=== PATIENT | male | born 1955 | race Caucasian/White ===

== ENCOUNTER 2018-12-20 12:06 | Inpatient (IN) | payer OTHER ==
[~2018-12-20] VITALS: Ht 193 cm; Wt 108.0 kg
[2018-12-20] VITALS (15 sets, daily range): BP systolic 140–170; BP diastolic 60–104
[2018-12-20] MEDS ORDERED: NITROGLYCERIN SUBLINGUAL 0.4 MG BOTTLE OF 25. SL ONE (12:12)
[2018-12-20] MEDS ORDERED: HEPARIN for IV BOLUS 10,000 UNIT/10 ML VIAL. ONE ×2 (12:12→12:57)
[2018-12-20] MEDS ORDERED: fentaNYL PF VIAL 100 MCG/2 ML VIAL ONE ×2 (12:13→12:39)
[2018-12-20] MEDS ORDERED: MORPHINE SULFATE 10 MG/ML VIAL. ONE (12:14)
[2018-12-20] MEDS ORDERED: ONDANSETRON PF 4 MG/2 ML VIAL. IV ONE (12:15)
[2018-12-20] MEDS ORDERED: HYDROmorphone 2 MG/ML VIAL IV ONE (12:15)
[2018-12-20] MEDS ORDERED: HYDROmorphone 2 MG/ML VIAL ONE (12:20)
--- NOTE | 2018-12-20 12:22 | EKG ---
[facility] [address] [place] [address] Test Date: 2018-12-20 Test Time: 12:06:24 Pat Name: RADHA WHITE Department: Room: Gender: M Vocational Director: : [id number] Requested By: LOGAN ANGELES Order Number: [id number] Reading MD: Measurements Intervals Spring Rate: 56 P: 0 NV: 188 QRS: 10 QRSD: 94 T: 54 QT: 396 QTc: 384 Interpretive Statements SINUS RHYTHM QRS(T) CONTOUR ABNORMALITY CONSISTENT WITH INFERIOR INFARCT PROBABLY OLD ST-T ELEVATION, CONSIDER ACUTE ANTERIOR INFARCT ABNORMAL ECG RI6.01 Unconfirmed report No previous ECG available for comparison
[2018-12-20] MEDS ORDERED: IODIXANOL 320 MG/ML 100 ML VIAL. ONE (12:24)
[2018-12-20] MEDS ORDERED: LIDOCAINE 1% Multi-Dose 20 ML VIAL. ONE (12:24)
[2018-12-20 12:25] LABS: BASO % 0 % (0-3); EOS % 7 % (0-3); HEMATOCRIT 45.2 % (39.0-53.0); HEMOGLOBIN 15.9 g/dL (13.0-17.5); LYMPH # 2.4 x10^3/uL (1.0-4.8); LYMPH % 17 % (24-48); MEAN CORPUSCULAR HEMOGLOBIN 31 pg (25-35); MEAN CORPUSCULAR HGB CONC 35 g/dL (31-37); MEAN CORPUSCULAR VOLUME 89 fL (79-100); MONO # 1.1 x10^3/uL (0.0-1.1); MONO % 8 % (0-9); NEUT # 9.2 x10^3/uL (1.8-7.7); NEUT % 67 % (31-73); PLATELET COUNT 324 x10^3/uL (140-400); RED BLOOD COUNT 5.09 x10^6/uL (4.30-5.70); RED CELL DISTRIBUTION WIDTH 13.4 % (11.5-14.5); WHITE BLOOD COUNT 13.7 x10^3/uL (4.0-11.0)
[2018-12-20] MEDS ORDERED: FAMOTIDINE 20 MG/2 ML VIAL ONE (12:28)
[2018-12-20] MEDS ORDERED: diphenhydrAMINE 50 MG/ML VIAL ONE (12:28)
[2018-12-20] MEDS ORDERED: methylPREDNISolone SOD SUCC PF 125 MG/2 ML VIAL. ONE (12:28)
[2018-12-20 12:29] LABS: CREATININE ISTAT 1.2 mg/dL (0.5-1.4); HEMOGLOBIN ISTAT 15.6 g/dL (14-18); ION CA ISTAT 1.16 mmol/L (1.13-1.32); POTASSIUM ISTAT 3.4 mmol/L (3.5-5.0)
--- NOTE | 2018-12-20 12:29 | PDOC1 ---
History and Physical Date of Admission Date of Admission DATE: 12/20/18 TIME: 12:29 Identification/Chief Complaint Chief Complaint seen in er , CODE STEMI Patient is a 63 year old male who is him by EMS FROM [place], NOTED SEVERE ANGINAL PAIN AT 11 AM TODAY Past Medical History Cardiovascular: Hyperlipidemia Pulmonary: Bronchitis, COPD Family History Family History: Hypertension Family History: Parent Social History Smoke: 1 pack per day ALCOHOL: none Drugs: None Current Medications Current Medications Current Medications Nitroglycerin (Nitrostat) 0.4 mg STK-MED ONCE SL ; Start 12/20/18 at 12:12; Stop 12/20/18 at 12:12; Status DC Heparin Sodium (Porcine) (Heparin Sodium) 10,000 unit STK-MED ONCE .ROUTE ; Start 12/20/18 at 12:12; Stop 12/20/18 at 12:12; Status DC Fentanyl Citrate (Fentanyl 2ml Vial) 100 mcg STK-MED ONCE .ROUTE ; Start 12/20/18 at 12:13; Stop 12/20/18 at 12:13; Status DC Hydromorphone HCl (Dilaudid) 2 mg 1X ONCE IV Last administered on 12/20/18at 12:22; Start 12/20/18 at 12:15; Stop 12/20/18 at 12:20; Status DC Ondansetron HCl (Zofran) 4 mg 1X ONCE IV Last administered on 12/20/18at 12:23; Start 12/20/18 at 12:15; Stop 12/20/18 at 12:20; Status DC Morphine Sulfate (Morphine Sulfate) 10 mg STK-MED ONCE .ROUTE ; Start 12/20/18 at 12:14; Stop 12/20/18 at 12:14; Status DC Morphine Sulfate (Morphine Sulfate) 4 mg 1X ONCE IV Last administered on 12/20/18at 12:20; Start 12/20/18 at 12:30; Stop 12/20/18 at 12:31 Hydromorphone HCl (Dilaudid) 2 mg STK-MED ONCE .ROUTE ; Start 12/20/18 at 12:20; Stop 12/20/18 at 12:20; Status DC Iodixanol (Visipaque 320) 100 ml STK-MED ONCE .ROUTE ; Start 12/20/18 at 12:24; Stop 12/20/18 at 12:24; Status DC Lidocaine HCl (Lidocaine 1% 20ml Vial) 20 ml STK-MED ONCE .ROUTE ; Start 12/20/18 at 12:24; Stop 12/20/18 at 12:24; Status DC Heparin Sodium/ Sodium Chloride 1,000 ml @ As Directed STK-MED ONCE .ROUTE ; Start 12/20/18 at 12:24; Stop 12/20/18 at 12:24; Status DC Diphenhydramine HCl (Benadryl) 50 mg STK-MED ONCE .ROUTE ; Start 12/20/18 at 12:28; Stop 12/20/18 at 12:28; Status DC Famotidine (Pepcid Vial) 20 mg STK-MED ONCE .ROUTE ; Start 12/20/18 at 12:28; Stop 12/20/18 at 12:28; Status DC Allergies Allergies: Coded Allergies: Penicillins (Verified Allergy, Intermediate, 12/20/18) latex (Verified Allergy, Mild, 12/20/18) ROS Review of System Review of Systems Review of Systems Constitutional: Denies fever or chills [] Eyes: Denies change in visual acuity, redness, or eye pain [] HENT: Denies nasal congestion or sore throat [] Respiratory: Denies cough or shortness of breath [] Cardiovascular: No additional information not addressed in HPI [] GI: Denies abdominal pain, nausea, vomiting, bloody stools or diarrhea [] : Denies dysuria or hematuria [] Musculoskeletal: Denies back pain or joint pain [] Integument: Denies rash or skin lesions [] Neurologic: Denies headache, focal weakness or sensory changes [] Endocrine: Denies polyuria or polydipsia [] 14 PT systems were reviewed and found to be within normal limits, except as docu mented in this note. Physical Exam Physical Exam Physical Exam Physical Exam Constitutional: Well developed, well nourished, MOD acute distress, DIAPHORETIC. [] HENT: Normocephalic, atraumatic, bilateral external ears normal, oropharynx moist, no oral exudates, nose normal. [] Eyes: PERRLA, EOMI, conjunctiva normal, no discharge. [] Neck: Normal range of motion, no tenderness, supple, no stridor. [] Cardiovascular:Heart rate regular rhythm, no murmur [] Lungs & Thorax: Bilateral breath sounds clear to auscultation, DIMINISHED [] Abdomen: Bowel sounds normal, soft, no tenderness, no masses, no pulsatile masses. [] Skin: Warm, dry, no erythema, no rash. [] Back: No tenderness, no CVA tenderness. [] Extremities: No tenderness, no cyanosis, no clubbing, ROM intact, no edema. [] Neurologic: Alert and oriented X 3, normal motor function, normal sensory function, no focal deficits noted. [] Psychologic: Affect normal, judgement normal, mood normal. [] General: Alert, Oriented X3, Cooperative, moderate distress HEENT: Atraumatic, PERRLA, EOMI, Mucous membr. moist/pink Lungs: Clear to auscultation Heart: S1S2, RRR Abdomen: Normal bowel sounds, Soft Rectal Exam: not examined PELVIC: Examination not indicated Extremities: No cyanosis Skin: No breakdown Neuro: Normal speech, Cranial nerves 3-12 NL Psych/Mental Status: Mental status NL, Mood NL Labs Labs Laboratory Tests Test 12/20/18 12:10 White Blood Count 13.7 x10^3/uL (4.0-11.0) Red Blood Count 5.09 x10^6/uL (4.30-5.70) Hemoglobin 15.9 g/dL (13.0-17.5) Hematocrit 45.2 % (39.0-53.0) Mean Corpuscular Volume 89 fL (79-100) Mean Corpuscular Hemoglobin 31 pg (25-35) Mean Corpuscular Hemoglobin Concent 35 g/dL (31-37) Red Cell Distribution Width 13.4 % (11.5-14.5) Platelet Count 324 x10^3/uL (140-400) Neutrophils (%) (Auto) 67 % (31-73) Lymphocytes (%) (Auto) 17 % (24-48) Monocytes (%) (Auto) 8 % (0-9) Eosinophils (%) (Auto) 7 % (0-3) Basophils (%) (Auto) 0 % (0-3) Neutrophils # (Auto) 9.2 x10^3/uL (1.8-7.7) Lymphocytes # (Auto) 2.4 x10^3/uL (1.0-4.8) Monocytes # (Auto) 1.1 x10^3/uL (0.0-1.1) Eosinophils # (Auto) 1.0 x10^3/uL (0.0-0.7) Basophils # (Auto) 0.0 x10^3/uL (0.0-0.2) Laboratory Tests Test 12/20/18 12:10 White Blood Count 13.7 x10^3/uL (4.0-11.0) Red Blood Count 5.09 x10^6/uL (4.30-5.70) Hemoglobin 15.9 g/dL (13.0-17.5) Hematocrit 45.2 % (39.0-53.0) Mean Corpuscular Volume 89 fL (79-100) Mean Corpuscular Hemoglobin 31 pg (25-35) Mean Corpuscular Hemoglobin Concent 35 g/dL (31-37) Red Cell Distribution Width 13.4 % (11.5-14.5) Platelet Count 324 x10^3/uL (140-400) Neutrophils (%) (Auto) 67 % (31-73) Lymphocytes (%) (Auto) 17 % (24-48) Monocytes (%) (Auto) 8 % (0-9) Eosinophils (%) (Auto) 7 % (0-3) Basophils (%) (Auto) 0 % (0-3) Neutrophils # (Auto) 9.2 x10^3/uL (1.8-7.7) Lymphocytes # (Auto) 2.4 x10^3/uL (1.0-4.8) Monocytes # (Auto) 1.1 x10^3/uL (0.0-1.1) Eosinophils # (Auto) 1.0 x10^3/uL (0.0-0.7) Basophils # (Auto) 0.0 x10^3/uL (0.0-0.2) Images Images HISTORY The patient is a 63 year-old male with a history of : tobacco history() , hypertension. INDICATION The indication(s) include : STEMI . PROCEDURE NARRATIVE After explaining the risks and benefits of the procedure and alternatives, informed consent was obtained. The patient was brought emergently to the cardiac catheterization lab. A timeout was performed confirming the patient's name, date of , procedure, and site of procedure. All necessary personnel were wearing the appropriate protective equipment and radiation monitor devices. (See nursing notes for medications administered). The right groin was sterilely prepped and draped in the usual fashion. The right groin was infiltrated with 10 mL of 2% lidocaine for subcutaneous anesthesia. A 6 F sheath was inserted into the right femoral artery without difficulty. Right and left coronary angiography was performed using a JR4 and JL4 catheter. Left ventricular end diastolic pressure was obtained with a pigtail catheter and pullback was performed after left ventriculography. HEMODYNAMICS: AO: 178/89 LVEDP 23 mm Hg No gradient on LV to aortic pullback. LEFT VENTRICULOGRAM: EF 45% Anterobasal: Normal. Anterolateral: Moderate hypokinesis. Apical: Akinetic Diaphragmatic: Normal Posterobasal: Normal *No significant mitral regurgitation or aortic insufficiency. CORONARY ANGIOGRAPHY: LM is a large caliber vessel with normal angiographic appearance. LAD is a large caliber vessel with a proximal 30% stenosis and a mid 100% occlusion. D1 is a moderate caliber vessel with an ostial 50% stenosis. LCx is a large caliber co-dominant vessel with proximal 30% stenosis. OM1 is a moderate caliber vessel with proximal 40-50% stenosis. RCA is a large caliber dominant vessel with mid 100% chronic occlusion with robust right to right collaterals. RPDA is a moderate caliber vessels with normal angiographic appearance. INTERVENTIONAL TECHNIQUE: PCI OF THE LAD Heparin and Tirofiban were used for anticoagulation. Through a 6Fr EBU 4.0 guide catheter, a 0.014'' Prowater wire was used to cross the mid LAD lesion. Balloon angioplasty was perfomed with a Trek 3.0/15 mm balloon and lesion stented with a Xience Alpine 4.0/23 JANN at 16 augusto. Final angiogpraphy revealed excellent stent expansion with MONSE 3 flow and no evidence of guide or wire related complications. MONSE Flow MONSE Flow (Pre-Intervention): MONSE-0 MONSE Flow (Post-Intervention): MONSE-3 Conclusion 1. Anterolateral STEMI 2. Three vessel coronary disease with culprit lesion in the mid LAD, treated with Xience Alpine 4.0/23 JANN 3. Acute systolic and diastolic HF. LVEDP 23 mm Hg 4. Mild to moderate LV dysfunction. EF 40-45% VTE Prophylaxis Ordered VTE Prophylaxis Devices: No VTE Pharmacological Prophylaxi: Yes Assessment/Plan Assessment/Plan Impression: ACUTE STEMI (ST elevation myocardial infarction) COPD Tobacco abuse disorder elevated troponin i hypokalemia DIABETES ADMITTED ICU BED CONSULT CARDIOLOGY, TO WILDLIFE PROTECTOR NOW, STAT replete k iv NPO ACCUCHECKS NEED FOR SMOKIN CESSATION Discussed IV HEPARIN PROTOCOL A1C FLP d/w in ER 33 min cc time TREY ALONZO MD Dec 20, 2018 12:29
[2018-12-20] MEDS ORDERED: MORPHINE SULFATE 10 MG/ML VIAL. IV ONE (12:30)
[2018-12-20 12:35] LABS: CALCIUM 9.1 mg/dL (8.5-10.1); CREATININE 1.3 mg/dL (0.7-1.3); GFR 55.9; POTASSIUM 3.5 mmol/L (3.5-5.1); PROTHROMBIN TIME PATIENT 12.5 SEC (11.7-14.0)
[2018-12-20] MEDS ORDERED: ASPIRIN 325 MG TABLET ONE (12:35)
[2018-12-20] MEDS ORDERED: MIDAZOLAM HCL/PF 2 MG/2 ML VIAL. ONE (12:38)
--- NOTE | 2018-12-20 12:40 | PHYS DOC ---
Adult General Chief Complaint Chief Complaint: chest pain HPI HPI Patient is a 63 year old male who is brought in by EMS because of chest pain. Patient complaining of sudden onset of nonexertional substernal and bilateral chest pressure pain with radiation to left shoulder associated with shortness of breath, dizziness, diaphoresis and generalized weakness. Patient rated his pain 10/10. EMS gave him aspirin but patient was not able to chew because of lack of denture. Patient was treated by EMS with nitroglycerin and then 100 �g of fentanyl and then another nitroglycerin with very mild change of pain. Patient had similar chest pain at arrival to ER with diaphoresis. EKG showed ST elevation in anterior leads and code STEMI was activated. Review of Systems Review of Systems Constitutional: Denies fever or chills [] Eyes: Denies change in visual acuity, redness, or eye pain [] HENT: Denies nasal congestion or sore throat [] Respiratory: Denies cough, reports shortness of breath [] Cardiovascular: No additional information not addressed in HPI [] GI: Denies abdominal pain, nausea, vomiting, bloody stools or diarrhea [] : Denies dysuria or hematuria [] Musculoskeletal: Denies back pain or joint pain [] Integument: Denies rash or skin lesions [] Neurologic: Denies headache, focal weakness or sensory changes [] Endocrine: Denies polyuria or polydipsia [] All other systems were reviewed and found to be within normal limits, except as documented in this note. Current Medications Current Medications Current Medications Medications (Trade) Dose Ordered Sig/Hawa Start Time Stop Time Status Last Admin Dose Admin Fentanyl Citrate (Fentanyl 2ml Vial) 100 mcg STK-MED ONCE 12/20/18 12:13 12/20/18 12:13 DC Heparin Sodium (Porcine) (Heparin Sodium) 10,000 unit STK-MED ONCE 12/20/18 12:12 12/20/18 12:12 DC Hydromorphone HCl (Dilaudid) 2 mg STK-MED ONCE 12/20/18 12:20 12/20/18 12:20 DC Morphine Sulfate (Morphine Sulfate) 10 mg STK-MED ONCE 12/20/18 12:14 12/20/18 12:14 DC Nitroglycerin (Nitrostat) 0.4 mg STK-MED ONCE 12/20/18 12:12 12/20/18 12:12 DC Ondansetron HCl (Zofran) 4 mg 1X ONCE 12/20/18 12:15 12/20/18 12:20 DC 12/20/18 12:23 4 MG Allergies Allergies Allergies Coded Allergies Type Severity Reaction Last Updated Verified Penicillins Allergy Intermediate 12/20/18 Yes Physical Exam Physical Exam Constitutional: Moderate distress, non-toxic appearance, diaphoretic. HENT: Normocephalic, atraumatic Eyes: PERRLA, EOMI, conjunctiva normal, no discharge. [] Neck: Normal range of motion, no tenderness, supple, no stridor. [] Cardiovascular: Bradycardia, no murmur [] Lungs & Thorax: Bilateral breath sounds clear to auscultation [] Abdomen: Bowel sounds normal, soft, no tenderness, no masses, no pulsatile masses. [] Skin: Warm, dry, no erythema, no rash. [] Back: No tenderness, no CVA tenderness. [] Extremities: No tenderness, no cyanosis, no clubbing, ROM intact, no edema. [] Neurologic: Alert and oriented X 3, no focal deficits noted. [] Psychologic: Affect normal, judgement normal, mood normal. [] Current Patient Data Vital Signs Vital Signs Date Time Temp Pulse Resp B/P (MAP) Pulse Ox O2 Delivery O2 Flow Rate FiO2 12/20/18 12:15 64 160/88 (112) 97 Nasal Cannula 2.0 12/20/18 12:06 97.9 20 97.9 Lab Values Laboratory Tests Test 12/20/18 12:10 12/20/18 12:15 12/20/18 12:20 White Blood Count 13.7 x10^3/uL (4.0-11.0) H Red Blood Count 5.09 x10^6/uL (4.30-5.70) Hemoglobin 15.9 g/dL (13.0-17.5) Hematocrit 45.2 % (39.0-53.0) Mean Corpuscular Volume 89 fL (79-100) Mean Corpuscular Hemoglobin 31 pg (25-35) Mean Corpuscular Hemoglobin Concent 35 g/dL (31-37) Red Cell Distribution Width 13.4 % (11.5-14.5) Platelet Count 324 x10^3/uL (140-400) Neutrophils (%) (Auto) 67 % (31-73) Lymphocytes (%) (Auto) 17 % (24-48) L Monocytes (%) (Auto) 8 % (0-9) Eosinophils (%) (Auto) 7 % (0-3) H Basophils (%) (Auto) 0 % (0-3) Neutrophils # (Auto) 9.2 x10^3/uL (1.8-7.7) H Lymphocytes # (Auto) 2.4 x10^3/uL (1.0-4.8) Monocytes # (Auto) 1.1 x10^3/uL (0.0-1.1) Eosinophils # (Auto) 1.0 x10^3/uL (0.0-0.7) H Basophils # (Auto) 0.0 x10^3/uL (0.0-0.2) Prothrombin Time 12.5 SEC (11.7-14.0) Prothrombin Time INR 1.0 (0.8-1.1) Sodium Level 142 mmol/L (136-145) Potassium Level 3.5 mmol/L (3.5-5.1) Chloride Level 104 mmol/L (98-107) Carbon Dioxide Level 25 mmol/L (21-32) Anion Gap 13 (6-14) 16 mmol/L (6-14) H Blood Urea Nitrogen 11 mg/dL (8-26) Creatinine 1.3 mg/dL (0.7-1.3) Estimated GFR (Cockcroft-Gault) 55.9 BUN/Creatinine Ratio 8 (6-20) Glucose Level 201 mg/dL (70-99) H 193 mg/dL (70-99) H Calcium Level 9.1 mg/dL (8.5-10.1) Magnesium Level 1.6 mg/dL (1.8-2.4) L Total Bilirubin 0.4 mg/dL (0.2-1.0) Aspartate Amino Transferase (AST) 20 U/L (15-37) Alanine Aminotransferase (ALT) 26 U/L (16-63) Alkaline Phosphatase 140 U/L (46-116) H Creatine Kinase 177 U/L (39-308) Creatine Kinase MB (Mass) 2.6 ng/mL (0.0-3.6) Creatine Kinase MB Relative Index 1.5 % (0-4) Troponin I Quantitative 0.175 ng/mL (0.000-0.055) GX-Otp-J-Type Natriuretic Peptide 679 pg/mL (0-124) H Total Protein 7.2 g/dL (6.4-8.2) Albumin 3.3 g/dL (3.4-5.0) L Albumin/Globulin Ratio 0.8 (1.0-1.7) L POC Troponin I 0.08 ng/ml (<0.08) POC Hemoglobin 15.6 g/dL (14-18) POC Hematocrit 46 % (37-52) POC Sodium 140 mmol/L (135-145) POC Potassium 3.4 mmol/L (3.5-5.0) L POC Chloride 105 mmol/L (98-110) POC Total CO2 24 mmol/L (23-32) POC Blood Urea Nitrogen 10 mg/dL (8-26) POC Creatinine 1.2 mg/dL (0.5-1.4) POC Ionized Calcium (Cassandra) 1.16 mmol/L (1.13-1.32) Laboratory Tests 12/20/18 12:10 Laboratory Tests 12/20/18 12:10 12/20/18 12:20 EKG EKG EKG interpreted by me. EKG at 1206 showed sinus bradycardia at rate of 56, ST elevation in anterior leads. Radiology/Procedures Radiology/Procedures Chest x-ray shows interpreted by me showed cardiomegaly with pulmonary vascular congestion[] Course & Med Decision Making Course & Med Decision Making Pertinent Labs and Imaging studies reviewed. (See chart for details) Evaluation of patient in ER showed 63-year-old male patient brought in by EMS with acute chest pain and cholecystectomy activation. Patient treated with mor phine and Dilaudid and aspirin and heparin bolus in ER with partial improvement of chest pain. Dr. Leblanc was consulted at 1212 and presented to ER and took patient to Leadership Coach at 1243.Patient requiring admission for further evaluation and treatment. Discussed with Dr. Villarreal at 1226 who is in agreement with admission. Discussed findings and plan with patient and family, who acknowledge understanding and agreement. Dragon Disclaimer Dragon Disclaimer This electronic medical record was generated, in whole or in part, using a voice recognition dictation system. Departure Departure Impression: Primary Impression: STEMI (ST elevation myocardial infarction) Additional Impressions: Hypomagnesemia Hyperglycemia Marijuana abuse Disposition: 09 ADMITTED INPATIENT (at 1227) Admitting Physician: ОЛЕГ (Dr. Villarreal accepted admission at 1226) Condition: GUARDED The HEART Score for CP Pts HEART Score for Chest Pain: HEART Score for Chest Pain Response (Comments) Value History Highly Suspicious [address] Depression 2 Age >45 - < 65 1 Risk Factors >3 Risk Factors or Hx CAD 2 Total 7 Risk Factors: Risk Factors: DM, Current or recent (<one month) smoker, HTN, HLP, family history of CAD, obesity. Risk Scores: Score 0 - 3: 2.5% MACE over next 6 weeks - Discharge Home Score 4 - 6: 20.3% MACE over next 6 weeks - Admit for Clinical Observation Score 7 - 10: 72.7% MACE over next 6 weeks - Early Invasive Strategies Critical Care Time Critical care time was 60 minutes exclusive of procedures. Problem Qualifiers Primary Impression: STEMI (ST elevation myocardial infarction) Involved coronary artery: unspecified coronary artery Qualified Codes: I21.3 - ST elevation (STEMI) myocardial infarction of unspecified site LOGAN ANGELES MD Dec 20, 2018 12:40
[2018-12-20 12:41] LABS: ALBUMIN 3.3 g/dL (3.4-5.0); ALBUMIN/GLOBULIN RATIO 0.8 (1.0-1.7); MAGNESIUM 1.6 mg/dL (1.8-2.4); TOTAL BILIRUBIN 0.4 mg/dL (0.2-1.0); TOTAL PROTEIN 7.2 g/dL (6.4-8.2)
[2018-12-20] MEDS ORDERED: ASPIRIN 325 MG TABLET PO ONE (12:45)
[2018-12-20] MEDS ORDERED: HEPARIN for IV BOLUS 10,000 UNIT/10 ML VIAL. IV ONE ×2 (12:45→13:00)
[2018-12-20 12:57] LABS: BARBITURATES NEG (NEG); BENZODIAZEPINES NEG (NEG); CANNABINOIDS POS (NEG); COCAINE NEG (NEG); METHADONE NEG (NEG); OPIATES NEG (NEG); PHENCYCLIDINE NEG (NEG)
[2018-12-20] MEDS ORDERED: TIROFIBAN 12.5MG -0.9% NS 250 ML IV ONE (12:57)
[2018-12-20 12:58] LABS: AMPHETAMINE/METHAMPHETAMINE NEG (NEG)
[2018-12-20] MEDS ORDERED: LIDOCAINE 1% Multi-Dose 20 ML VIAL. INJ ONE (13:00)
[2018-12-20] MEDS ORDERED: MIDAZOLAM HCL/PF 2 MG/2 ML VIAL. IV ONE (13:00)
[2018-12-20] MEDS ORDERED: NITROGLYCERIN 200 MCG/2 ML SYRINGE FOR CATH/VASC LAB. IART ONE (13:00)
[2018-12-20] MEDS ORDERED: IOHEXOL 300 MG/ML 100ML VIAL. IART ONE (13:00)
[2018-12-20] MEDS ORDERED: fentaNYL PF VIAL 100 MCG/2 ML VIAL IV ONE (13:00)
[2018-12-20] MEDS ORDERED: TIROFIBAN 5MG -0.9% NS 100 ML IV PRN (13:00)
[2018-12-20] MEDS ORDERED: NITROGLYCERIN 200 MCG/2 ML SYRINGE FOR CATH/VASC LAB. ONE (13:09)
[2018-12-20] MEDS ORDERED: DOCUSATE SODIUM 100 MG CAPSULE. PO PRN (13:15)
[2018-12-20] MEDS ORDERED: POTASSIUM CHL 20MEQ PREMIX 50 ML IV SCH (13:15)
[2018-12-20] MEDS ORDERED: ONDANSETRON PF 4 MG/2 ML VIAL. IV PRN (13:15)
[2018-12-20] MEDS ORDERED: 0.9 % SODIUM CHLORIDE 10 ML DISP.SYRIN. IV PRN ×2 (13:15→14:15)
[2018-12-20] MEDS ORDERED: guaiFENesin ORAL 200 MG/10 ML LIQUID. PO PRN (13:15)
[2018-12-20] MEDS ORDERED: SODIUM PHOSPHATES 19/7GM 133 ML ENEMA. PR PRN (13:15)
[2018-12-20] MEDS ORDERED: ACETAMINOPHEN 325 MG TABLET. PO PRN ×2 (13:15→14:15)
[2018-12-20] MEDS ORDERED: TICAGRELOR 90 MG TABLET. ONE (13:30)
--- NOTE | 2018-12-20 13:40 | PDOC ---
Provider Note Provider Note Consult dictated. #[id number] Anterior stemi s/p PCI to the LAD. See cath report for full details. thx SHERLY SHERWOOD MD Dec 20, 2018 13:40
[2018-12-20] MEDS: IPRATRPIUM/ALBUTEROL 0.5/2.5MG 3 ML NEBU. NEB SCH ×3 (13:42→20:25)
[2018-12-20] MEDS ORDERED: TICAGRELOR 90 MG TABLET. PO ONE (13:45)
--- NOTE | 2018-12-20 13:51 | CARD ---
MR#: [id number] Date of Study: 12/20/2018 Ordering Physician: SHERLY SHERWOOD, Referring Physician: LOGAN ANGELES, Tech: RT Lb (R) JAVI APPROVED REPORT Technologist: RT Lb (R) JAVI Nurse: Crystal Ryan RN Procedure(s) performed: MOD SED:36 MIN CONTRAST:147ML FLUORO TIME:4.9 MIN DOSE:115 GYCM2 LHC, Coronary angiography, Left ventriculography PCI of the LAD HISTORY The patient is a 63 year-old male with a history of : tobacco history() , hypertension. INDICATION The indication(s) include : STEMI . PROCEDURE NARRATIVE After explaining the risks and benefits of the procedure and alternatives, informed consent was obtai paul. The patient was brought emergently to the cardiac catheterization lab. A timeout was performed confirming the patient's name, date of , procedure, and site of procedure. All necessary person miguel were wearing the appropriate protective equipment and radiation monitor devices. (See nursing no vincent for medications administered). The right groin was sterilely prepped and draped in the usual fashion. The right groin was infiltrat ed with 10 mL of 2% lidocaine for subcutaneous anesthesia. A 6 F sheath was inserted into the right femoral artery without difficulty. Right and left coronary angiography was performed using a JR4 and JL4 catheter. Left ventricular end diastolic pressure was obtained with a pigtail catheter and pull back was performed after left ventriculography. HEMODYNAMICS: AO: 178/89 LVEDP 23 mm Hg No gradient on LV to aortic pullback. LEFT VENTRICULOGRAM: EF 45% Anterobasal: Normal. Anterolateral: Moderate hypokinesis. Apical: Akinetic Diaphragmatic: Normal Posterobasal: Normal *No significant mitral regurgitation or aortic insufficiency. CORONARY ANGIOGRAPHY: LM is a large caliber vessel with normal angiographic appearance. LAD is a large caliber vessel with a proximal 30% stenosis and a mid 100% occlusion. D1 is a moderate caliber vessel with an ostial 50% stenosis. LCx is a large caliber co-dominant vessel with proximal 30% stenosis. OM1 is a moderate caliber vessel with proximal 40-50% stenosis. RCA is a large caliber dominant vessel with mid 100% chronic occlusion with robust right to right col laterals. RPDA is a moderate caliber vessels with normal angiographic appearance. INTERVENTIONAL TECHNIQUE: PCI OF THE LAD Heparin and Tirofiban were used for anticoagulation. Through a 6Fr EBU 4.0 guide catheter, a 0.014'' Prowater wire was used to cross the mid LAD lesion. Balloon angioplasty was perfomed with a Trek 3.0/ 15 mm balloon and lesion stented with a Xience Alpine 4.0/23 JANN at 16 augusto. Final angiogpraphy reveal ed excellent stent expansion with MONSE 3 flow and no evidence of guide or wire related complications. MONSE Flow MONSE Flow (Pre-Intervention): MONSE-0 MONSE Flow (Post-Intervention): MONSE-3 Conclusion 1. Anterolateral STEMI 2. Three vessel coronary disease with culprit lesion in the mid LAD, treated with Xience Alpine 4.0/2 3 JANN 3. Acute systolic and diastolic HF. LVEDP 23 mm Hg 4. Mild to moderate LV dysfunction. EF 40-45% Recommendations ASA 81mg daily Ticagrelor 90mg bid Tirofiban gtt for 12 hours Atorvastatin 40mg qhs Aggressive risk factor modification and cardiac rehab modalities. Signed by : Sherly Sherwood, Electronically Approved : 12/20/2018 13:50:31
[2018-12-20] MEDS ORDERED: POTASSIUM CHLORIDE 10MEQ 100 ML IV SCH (14:00)
--- NOTE | 2018-12-20 14:00 | NUR ---
Pt to ICU from [facility]. A&Ox4. VSS. Denies pain. Femostop in place at right groin arterial puncture site. No bleeding. Right foot warm with 2+ pulse. Will continue to monitor.
--- NOTE | 2018-12-20 14:06 | RAD ---
PORTABLE CHEST 1V Clinical Indication: Chest pain, shortness of air Comparison: None. Findings: The cardiomediastinal silhouette is normal. Lungs are clear. There is no pneumothorax. No pleural effusion is appreciated. No acute bone abnormality. IMPRESSION: No acute cardiopulmonary process. Electronically signed by: Darek Cortez MD (12/20/2018 2:03 PM) [facility]
--- NOTE | 2018-12-20 14:12 | NUR ---
Femstop applied just before leaving the cathode ray tube assembler due to patient's femoral site bleeding after transferring him back to the bed. Dr. Leblanc stated that the femstop could come off in an hour. Patient's stated that he has restless leg syndrome making it hard for him to keep his legs still.
[2018-12-20] MEDS ORDERED: NITROGLYCERIN SUBLINGUAL 0.4 MG BOTTLE OF 25. SL PRN (14:15)
[2018-12-20] MEDS ORDERED: LIDOCAINE 2% 100 MG/5 ML SYRINGE. IV PRN (14:15)
[2018-12-20] MEDS ORDERED: ATROPINE 0.5 MG/5 ML DISP.SYRINGE. IV PRN (14:15)
[2018-12-20] MEDS ORDERED: AMIODARONE 150 MG in IV DEXTROSE 5% 100ML 100 ML IV PRN (14:15)
--- NOTE | 2018-12-20 14:26 | CONS ---
DATE OF CONSULTATION: 12/20/2018 REASON FOR CONSULTATION: STEMI. HISTORY OF PRESENT ILLNESS: The patient is a 63-year-old man with past medical history as noted below, who presents to the hospital in the setting of acute chest pain with diaphoresis. Initial EMS EKG revealed anterior ST elevations and he was brought emergently to the [facility] laborer after confirmation of a repeat EKG in the ER. He at baseline, does not have any obvious chest pain. Does have some exertional dyspnea, though. He denies any other prior cardiac interventions. PAST MEDICAL HISTORY: 1. Hypertension. 2. Tobacco abuse. SOCIAL HISTORY: No significant alcohol use. He does smoke 1 pack per day. No illicit drug use. FAMILY HISTORY: Noncontributory. ALLERGIES: PENICILLINS. CURRENT CARDIAC MEDICATIONS: Unknown at home. REVIEW OF SYSTEMS: Negative for 10 out of 14 systems reviewed, unless otherwise mentioned above in the HPI. PHYSICAL EXAMINATION: VITAL SIGNS: Afebrile, 70, 160/88, 97% on 2 liters nasal cannula. GENERAL: He is noted to be in moderate distress with diaphoresis. HEAD AND NECK: Unremarkable. CARDIAC: Regular rate and rhythm without any murmurs, rubs or gallops. LUNGS: Clear to auscultation except for mild rhonchi. ABDOMEN: Soft, nontender, nondistended. EXTREMITIES: No obvious clubbing, cyanosis or edema with diminished pulses at 1+ bilaterally. NEUROLOGIC: No focal deficits. MUSCULOSKELETAL: No trauma. DIAGNOSTIC STUDIES: Hemoglobin 15.9, platelet count 324, troponin of 0.175, BNP of 679, creatinine 1.3. EKG reveals [address] segment elevation in the anterolateral leads. Cardiac catheterization revealed a 2-vessel coronary artery disease with an occluded left anterior descending artery, status post PCI with a 4.0 x 23 mm Alpine drug-eluting stent. IMPRESSION: 1. Anterolateral ST elevation myocardial infarction. 2. Hypertension. 3. Tobacco abuse. 4. History of prostatic hypertrophy with known self-catheterization. RECOMMENDATIONS: 1. Continue aspirin, ticagrelor 90 mg b.i.d. 2. Refer to cardiac rehabilitation. Check echocardiogram. 3. Continue tirofiban infusion for the next 12 hours. Unless there is any right groin bleeding issues, we will continue his antiplatelet therapy. Continue risk factor modification. Anticipate a 24-48 hour stay. Thank you for this consultation. SHERLY SHERWOOD MD DR: NAYANA/lula JOB#: [id number] / [id number]
[2018-12-20] MEDS ORDERED: NITROGLYCERIN PREMIX 250 ML IV ONE (14:45)
[2018-12-20] MEDS ORDERED: POTASSIUM CHLORIDE 20 MEQ TABLET.ER. PO ONE (15:30)
--- NOTE | 2018-12-20 15:41 | NUR ---
B/P 150's / 90's. Call to Dr. Leblanc. Order received for nitro qtt.
[2018-12-20] MEDS: PANTOPRAZOLE 40 MG TABLET.DR. PO SCH (16:11)
[2018-12-20] MEDS: LORazepam 0.5 MG TABLET PO PRN ×2 (16:11→22:01)
--- NOTE | 2018-12-20 18:10 | EKG ---
[facility] [address] [place] [address] Test Date: 2018-12-20 Test Time: 18:12:22 Pat Name: RADHA WHITE Department: Room: 109 1 Gender: M Agency Cashier: RANJIT : 1955 Requested By: SHERLY SHERWOOD Order Number: [id number] Reading MD: Measurements Intervals Justice Rate: 66 P: 66 NE: 176 QRS: 10 QRSD: 94 T: -165 QT: 452 QTc: 476 Interpretive Statements SINUS RHYTHM VENTRICULAR PREMATURE COMPLEX(ES) QRS(T) CONTOUR ABNORMALITY CONSISTENT WITH ANTEROSEPTAL INFARCT AGE UNDETERMINED CONSISTENT WITH INFERIOR INFARCT AGE UNDETERMINED T ABNORMALITY IN ANTERIOR LEADS LATERAL LEADS ABNORMAL ECG RI6.01 Compared to ECG 12/20/2018 12:06:24 T-wave abnormality now present Myocardial infarct finding still present
[2018-12-20] MEDS: fentaNYL PF VIAL 100 MCG/2 ML VIAL IV PRN (19:49)
[2018-12-20] MEDS ORDERED: MAG HYDROX/ALUMINUM HYD/SIMETH 30 ML ORAL.SUSP PO PRN (21:30)
[2018-12-20] MEDS: ATORVASTATIN CALCIUM 40 MG TABLET. PO SCH (22:01)
[2018-12-20] MEDS: LABETALOL 20 MG/4 ML DISP.SYRIN. IVP PRN (22:03)
[2018-12-21] VITALS (14 sets, daily range): BP systolic 152–180; BP diastolic 72–105
[2018-12-21] MEDS: LABETALOL 20 MG/4 ML DISP.SYRIN. IVP PRN ×3 (01:05→20:03)
[2018-12-21 01:07] LABS: HEMOGLOBIN A1C 5.7 % (4.8-5.6)
[2018-12-21] MEDS: IPRATRPIUM/ALBUTEROL 0.5/2.5MG 3 ML NEBU. NEB SCH (01:15)
[2018-12-21] MEDS: fentaNYL PF VIAL 100 MCG/2 ML VIAL IV PRN (01:15)
[2018-12-21] MEDS ORDERED: PROCHLORPERAZINE 10 MG/2 ML VIAL. IV PRN (02:45)
[2018-12-21 04:55] LABS: BASO # 0.1 x10^3/uL (0.0-0.2); BASO % 1 % (0-3); EOS # 0.3 x10^3/uL (0.0-0.7); EOS % 2 % (0-3); HEMATOCRIT 42.4 % (39.0-53.0); HEMOGLOBIN 14.5 g/dL (13.0-17.5); LYMPH # 1.3 x10^3/uL (1.0-4.8); LYMPH % 7 % (24-48); MEAN CORPUSCULAR HEMOGLOBIN 31 pg (25-35); MEAN CORPUSCULAR HGB CONC 34 g/dL (31-37); MEAN CORPUSCULAR VOLUME 89 fL (79-100); MONO # 1.2 x10^3/uL (0.0-1.1); MONO % 7 % (0-9); NEUT # 14.6 x10^3/uL (1.8-7.7); NEUT % 83 % (31-73); PLATELET COUNT 307 x10^3/uL (140-400); RED BLOOD COUNT 4.74 x10^6/uL (4.30-5.70); RED CELL DISTRIBUTION WIDTH 13.5 % (11.5-14.5); WHITE BLOOD COUNT 17.6 x10^3/uL (4.0-11.0)
[2018-12-21 05:07] LABS: CALCIUM 8.8 mg/dL (8.5-10.1); GFR 75.7; POTASSIUM 3.9 mmol/L (3.5-5.1)
[2018-12-21 05:13] LABS: ALBUMIN 3.2 g/dL (3.4-5.0); ALBUMIN/GLOBULIN RATIO 0.8 (1.0-1.7); DIRECT BILIRUBIN 0.1 mg/dL (0.0-0.2); TOTAL BILIRUBIN 0.7 mg/dL (0.2-1.0); TOTAL PROTEIN 7.1 g/dL (6.4-8.2)
--- NOTE | 2018-12-21 06:00 | NUR ---
PATIENT BECAME AGITATED AND REFUSED BREATHING TREATMENTS. STATED HE WILL LEAVE IF HE HAS TO HAVE BREATHING TREATMENTS. COMPLAINED OF CHEST PAIN TO RIGHT SIDE OF CHEST HE DESCRIBED PRESSURE AND HEAVINESS. INCREASED BP. KAELA NOTIFIED. ORDERS RECEIVED. X2 EPISODES OF NAUSEA AND VOMITING. ZOFRAN GIVEN WITHOUT RELIEF. FULBRIGHT NOTIFIED. COMPAZINE ORDERED.
[2018-12-21] MEDS: LORazepam 0.5 MG TABLET PO PRN (06:43)
[2018-12-21] MEDS: PANTOPRAZOLE 40 MG TABLET.DR. PO SCH (09:12)
[2018-12-21] MEDS: ASPIRIN ENTERIC COATED 81 MG TABLET.DR. PO SCH (09:12)
[2018-12-21] MEDS: TICAGRELOR 90 MG TABLET. PO SCH ×2 (09:12→19:39)
[2018-12-21 09:29] LABS: % BANDS 4 % (0-9); % BASOS 1 % (0-3); % EOS 1 % (0-5); % LYMPHS 11 % (24-48); % MONOS 7 % (0-10); % SEGS 76 % (35-66); PLT ESTIMATE ADEQUATE (ADEQUATE)
--- NOTE | 2018-12-21 10:58 | PDOC ---
CARDIOLOGY PROGRESS NOTE SUBJECTIVE: No chest pain, soa or other symptoms. Walking around w/o problems. Has a mild headache OBJECTIVE: Vital Signs/I&O: 152/92, HR 70, AF, 97 on RA Objective: GEN.: No apparent distress. Alert and oriented. HEENT: Head is normocephalic, atraumatic NECK: Supple. LUNGS: Clear to auscultation. HEART: RRR, S1, S2 present. Peripheral pulses intact ABDOMEN: Soft, nontender. Positive bowel sounds. EXTREMITIES: Without any cyanosis. NEUROLOGIC: Normal speech, normal tone PSYCHIATRIC: Normal affect, normal mood. SKIN: No ulcerations CURRENT MEDICATIONS: Ticagrelor 90mg bid ASA 81mg daily Atorvastatin 40mg daily Ntg gtt - DIAGNOSTIC TESTING: Trop peak 172 Cr wnl LDL 121 ASSESSMENT: 1. Anterolateral STEMI 2. HTN 3. DLP 4. Tobacco abuse PLAN: 1. Restart home meds. 2. Cardiac rehab 3. Check echo. 4. Wean ntg gtt. Transfer to floor. SHERLY SHERWOOD MD Dec 21, 2018 10:58
--- NOTE | 2018-12-21 11:53 | PDOC ---
PROGRESS NOTES Chief Complaint Chief Complaint STEMI, michael lateral SMOKER HTN 3 vessel CAD History of Present Illness History of Present Illness Seen in ICU NO CP, no SOA, can be agitated last night at bedside asks about [facility] report [facility] that [facility] On nitro gtt per cards - not hypotensive/tolerating it fine PLAN: Nitro gtt per cards, till then keep ICU Brilinta, etc dw DAYNA patch Smoking cessation Cardiac diet SW to help verify with [facility] if they will cover STEMi meds on dc Vitals Vitals Vital Signs Date Time Temp Pulse Resp B/P (MAP) Pulse Ox O2 Delivery O2 Flow Rate FiO2 12/21/18 10:00 72 15 154/77 (102) 97 Room Air 12/21/18 07:00 98.3 98.3 12/20/18 21:00 2.0 Physical Exam General: Alert, Oriented X3, Cooperative, moderate distress Abdomen: Normal bowel sounds, Soft Extremities: No cyanosis Skin: No breakdown Labs LABS Laboratory Tests Test 12/20/18 12:10 12/20/18 12:15 12/20/18 12:18 12/20/18 12:20 White Blood Count 13.7 x10^3/uL (4.0-11.0) Red Blood Count 5.09 x10^6/uL (4.30-5.70) Hemoglobin 15.9 g/dL (13.0-17.5) Hematocrit 45.2 % (39.0-53.0) Mean Corpuscular Volume 89 fL (79-100) Mean Corpuscular Hemoglobin 31 pg (25-35) Mean Corpuscular Hemoglobin Concent 35 g/dL (31-37) Red Cell Distribution Width 13.4 % (11.5-14.5) Platelet Count 324 x10^3/uL (140-400) Neutrophils (%) (Auto) 67 % (31-73) Lymphocytes (%) (Auto) 17 % (24-48) Monocytes (%) (Auto) 8 % (0-9) Eosinophils (%) (Auto) 7 % (0-3) Basophils (%) (Auto) 0 % (0-3) Neutrophils # (Auto) 9.2 x10^3/uL (1.8-7.7) Lymphocytes # (Auto) 2.4 x10^3/uL (1.0-4.8) Monocytes # (Auto) 1.1 x10^3/uL (0.0-1.1) Eosinophils # (Auto) 1.0 x10^3/uL (0.0-0.7) Basophils # (Auto) 0.0 x10^3/uL (0.0-0.2) Prothrombin Time 12.5 SEC (11.7-14.0) Prothromb Time International Ratio 1.0 (0.8-1.1) Sodium Level 142 mmol/L (136-145) Potassium Level 3.5 mmol/L (3.5-5.1) Chloride Level 104 mmol/L (98-107) Carbon Dioxide Level 25 mmol/L (21-32) Anion Gap 13 (6-14) 16 mmol/L (6-14) Blood Urea Nitrogen 11 mg/dL (8-26) Creatinine 1.3 mg/dL (0.7-1.3) Estimated GFR (Cockcroft-Gault) 55.9 BUN/Creatinine Ratio 8 (6-20) Glucose Level 201 mg/dL (70-99) 193 mg/dL (70-99) Calcium Level 9.1 mg/dL (8.5-10.1) Magnesium Level 1.6 mg/dL (1.8-2.4) Total Bilirubin 0.4 mg/dL (0.2-1.0) Aspartate Amino Transf (AST/SGOT) 20 U/L (15-37) Alanine Aminotransferase (ALT/SGPT) 26 U/L (16-63) Alkaline Phosphatase 140 U/L (46-116) Creatine Kinase 177 U/L (39-308) Creatine Kinase MB (Mass) 2.6 ng/mL (0.0-3.6) Creatine Kinase MB Relative Index 1.5 % (0-4) Troponin I Quantitative 0.175 ng/mL (0.000-0.055) DW-Myn-Y-Type Natriuretic Peptide 679 pg/mL (0-124) Total Protein 7.2 g/dL (6.4-8.2) Albumin 3.3 g/dL (3.4-5.0) Albumin/Globulin Ratio 0.8 (1.0-1.7) Bedside Troponin I 0.08 ng/ml (<0.08) Hemoglobin A1c 5.7 % (4.8-5.6) Bedside Hemoglobin 15.6 g/dL (14-18) Bedside Hematocrit 46 % (37-52) Bedside Sodium 140 mmol/L (135-145) Bedside Potassium 3.4 mmol/L (3.5-5.0) Bedside Chloride 105 mmol/L (98-110) Bedside Total CO2 24 mmol/L (23-32) Bedside Blood Urea Nitrogen 10 mg/dL (8-26) Bedside Creatinine 1.2 mg/dL (0.5-1.4) Bedside Ionized Calcium (Cassandra) 1.16 mmol/L (1.13-1.32) Test 12/20/18 12:39 12/20/18 13:16 12/20/18 16:05 12/20/18 19:40 Urine Opiates Screen Neg (NEG) Urine Methadone Screen Neg (NEG) Urine Barbiturates Neg (NEG) Urine Phencyclidine Screen Neg (NEG) Urine Amphetamine/Methamphetamine Neg (NEG) Urine Benzodiazepines Screen Neg (NEG) Urine Cocaine Screen Neg (NEG) Urine Cannabinoids Screen Pos (NEG) Urine Ethyl Alcohol Neg (NEG) Activated Clotting Time 146 sec (92-181) Troponin I Quantitative 89.186 ng/mL (0.000-0.055) 172.165 ng/mL (0.000-0.055) Test 12/21/18 04:25 White Blood Count 17.6 x10^3/uL (4.0-11.0) Red Blood Count 4.74 x10^6/uL (4.30-5.70) Hemoglobin 14.5 g/dL (13.0-17.5) Hematocrit 42.4 % (39.0-53.0) Mean Corpuscular Volume 89 fL (79-100) Mean Corpuscular Hemoglobin 31 pg (25-35) Mean Corpuscular Hemoglobin Concent 34 g/dL (31-37) Red Cell Distribution Width 13.5 % (11.5-14.5) Platelet Count 307 x10^3/uL (140-400) Neutrophils (%) (Auto) 83 % (31-73) Lymphocytes (%) (Auto) 7 % (24-48) Monocytes (%) (Auto) 7 % (0-9) Eosinophils (%) (Auto) 2 % (0-3) Basophils (%) (Auto) 1 % (0-3) Neutrophils # (Auto) 14.6 x10^3/uL (1.8-7.7) Lymphocytes # (Auto) 1.3 x10^3/uL (1.0-4.8) Monocytes # (Auto) 1.2 x10^3/uL (0.0-1.1) Eosinophils # (Auto) 0.3 x10^3/uL (0.0-0.7) Basophils # (Auto) 0.1 x10^3/uL (0.0-0.2) Segmented Neutrophils % 76 % (35-66) Band Neutrophils % 4 % (0-9) Lymphocytes % 11 % (24-48) Monocytes % 7 % (0-10) Eosinophils % 1 % (0-5) Basophils % 1 % (0-3) Platelet Estimate Adequate (ADEQUATE) Sodium Level 143 mmol/L (136-145) Potassium Level 3.9 mmol/L (3.5-5.1) Chloride Level 106 mmol/L (98-107) Carbon Dioxide Level 27 mmol/L (21-32) Anion Gap 10 (6-14) Blood Urea Nitrogen 12 mg/dL (8-26) Creatinine 1.0 mg/dL (0.7-1.3) Estimated GFR (Cockcroft-Gault) 75.7 BUN/Creatinine Ratio 12 (6-20) Glucose Level 121 mg/dL (70-99) Calcium Level 8.8 mg/dL (8.5-10.1) Total Bilirubin 0.7 mg/dL (0.2-1.0) Direct Bilirubin 0.1 mg/dL (0.0-0.2) Aspartate Amino Transf (AST/SGOT) 226 U/L (15-37) Alanine Aminotransferase (ALT/SGPT) 57 U/L (16-63) Alkaline Phosphatase 124 U/L (46-116) Troponin I Quantitative 73.199 ng/mL (0.000-0.055) Total Protein 7.1 g/dL (6.4-8.2) Albumin 3.2 g/dL (3.4-5.0) Albumin/Globulin Ratio 0.8 (1.0-1.7) Triglycerides Level 159 mg/dL (0-150) Cholesterol Level 182 mg/dL (0-200) LDL Cholesterol, Calculated 121 mg/dL (0-100) VLDL Cholesterol, Calculated 32 mg/dL (0-40) Non-HDL Cholesterol Calculated 153 mg/dL (0-129) HDL Cholesterol 29 mg/dL (40-60) Cholesterol/HDL Ratio Review of Systems Review of Systems no cp, no soa, no abd pain, no diarrhea, no const, no fever, no depression Assessment and Plan Assessmemt and Plan Problems Medical Problems: (1) HTN (hypertension) Status: Chronic (2) Hyperglycemia Status: Acute (3) Hypomagnesemia Status: Acute (4) Marijuana abuse Status: Acute (5) STEMI (ST elevation myocardial infarction) Status: Acute Comment Review of Relevant I have reviewed the following items nini (where applicable) has been applied. Labs Laboratory Tests Test 12/20/18 12:10 12/20/18 12:15 12/20/18 12:18 12/20/18 12:20 White Blood Count 13.7 x10^3/uL (4.0-11.0) Red Blood Count 5.09 x10^6/uL (4.30-5.70) Hemoglobin 15.9 g/dL (13.0-17.5) Hematocrit 45.2 % (39.0-53.0) Mean Corpuscular Volume 89 fL (79-100) Mean Corpuscular Hemoglobin 31 pg (25-35) Mean Corpuscular Hemoglobin Concent 35 g/dL (31-37) Red Cell Distribution Width 13.4 % (11.5-14.5) Platelet Count 324 x10^3/uL (140-400) Neutrophils (%) (Auto) 67 % (31-73) Lymphocytes (%) (Auto) 17 % (24-48) Monocytes (%) (Auto) 8 % (0-9) Eosinophils (%) (Auto) 7 % (0-3) Basophils (%) (Auto) 0 % (0-3) Neutrophils # (Auto) 9.2 x10^3/uL (1.8-7.7) Lymphocytes # (Auto) 2.4 x10^3/uL (1.0-4.8) Monocytes # (Auto) 1.1 x10^3/uL (0.0-1.1) Eosinophils # (Auto) 1.0 x10^3/uL (0.0-0.7) Basophils # (Auto) 0.0 x10^3/uL (0.0-0.2) Prothrombin Time 12.5 SEC (11.7-14.0) Prothromb Time International Ratio 1.0 (0.8-1.1) Sodium Level 142 mmol/L (136-145) Potassium Level 3.5 mmol/L (3.5-5.1) Chloride Level 104 mmol/L (98-107) Carbon Dioxide Level 25 mmol/L (21-32) Anion Gap 13 (6-14) 16 mmol/L (6-14) Blood Urea Nitrogen 11 mg/dL (8-26) Creatinine 1.3 mg/dL (0.7-1.3) Estimated GFR (Cockcroft-Gault) 55.9 BUN/Creatinine Ratio 8 (6-20) Glucose Level 201 mg/dL (70-99) 193 mg/dL (70-99) Calcium Level 9.1 mg/dL (8.5-10.1) Magnesium Level 1.6 mg/dL (1.8-2.4) Total Bilirubin 0.4 mg/dL (0.2-1.0) Aspartate Amino Transf (AST/SGOT) 20 U/L (15-37) Alanine Aminotransferase (ALT/SGPT) 26 U/L (16-63) Alkaline Phosphatase 140 U/L (46-116) Creatine Kinase 177 U/L (39-308) Creatine Kinase MB (Mass) 2.6 ng/mL (0.0-3.6) Creatine Kinase MB Relative Index 1.5 % (0-4) Troponin I Quantitative 0.175 ng/mL (0.000-0.055) HJ-Xiy-P-Type Natriuretic Peptide 679 pg/mL (0-124) Total Protein 7.2 g/dL (6.4-8.2) Albumin 3.3 g/dL (3.4-5.0) Albumin/Globulin Ratio 0.8 (1.0-1.7) Bedside Troponin I 0.08 ng/ml (<0.08) Hemoglobin A1c 5.7 % (4.8-5.6) Bedside Hemoglobin 15.6 g/dL (14-18) Bedside Hematocrit 46 % (37-52) Bedside Sodium 140 mmol/L (135-145) Bedside Potassium 3.4 mmol/L (3.5-5.0) Bedside Chloride 105 mmol/L (98-110) Bedside Total CO2 24 mmol/L (23-32) Bedside Blood Urea Nitrogen 10 mg/dL (8-26) Bedside Creatinine 1.2 mg/dL (0.5-1.4) Bedside Ionized Calcium (Cassandra) 1.16 mmol/L (1.13-1.32) Test 12/20/18 12:39 12/20/18 13:16 12/20/18 16:05 12/20/18 19:40 Urine Opiates Screen Neg (NEG) Urine Methadone Screen Neg (NEG) Urine Barbiturates Neg (NEG) Urine Phencyclidine Screen Neg (NEG) Urine Amphetamine/Methamphetamine Neg (NEG) Urine Benzodiazepines Screen Neg (NEG) Urine Cocaine Screen Neg (NEG) Urine Cannabinoids Screen Pos (NEG) Urine Ethyl Alcohol Neg (NEG) Activated Clotting Time 146 sec (92-181) Troponin I Quantitative 89.186 ng/mL (0.000-0.055) 172.165 ng/mL (0.000-0.055) Test 12/21/18 04:25 White Blood Count 17.6 x10^3/uL (4.0-11.0) Red Blood Count 4.74 x10^6/uL (4.30-5.70) Hemoglobin 14.5 g/dL (13.0-17.5) Hematocrit 42.4 % (39.0-53.0) Mean Corpuscular Volume 89 fL (79-100) Mean Corpuscular Hemoglobin 31 pg (25-35) Mean Corpuscular Hemoglobin Concent 34 g/dL (31-37) Red Cell Distribution Width 13.5 % (11.5-14.5) Platelet Count 307 x10^3/uL (140-400) Neutrophils (%) (Auto) 83 % (31-73) Lymphocytes (%) (Auto) 7 % (24-48) Monocytes (%) (Auto) 7 % (0-9) Eosinophils (%) (Auto) 2 % (0-3) Basophils (%) (Auto) 1 % (0-3) Neutrophils # (Auto) 14.6 x10^3/uL (1.8-7.7) Lymphocytes # (Auto) 1.3 x10^3/uL (1.0-4.8) Monocytes # (Auto) 1.2 x10^3/uL (0.0-1.1) Eosinophils # (Auto) 0.3 x10^3/uL (0.0-0.7) Basophils # (Auto) 0.1 x10^3/uL (0.0-0.2) Segmented Neutrophils % 76 % (35-66) Band Neutrophils % 4 % (0-9) Lymphocytes % 11 % (24-48) Monocytes % 7 % (0-10) Eosinophils % 1 % (0-5) Basophils % 1 % (0-3) Platelet Estimate Adequate (ADEQUATE) Sodium Level 143 mmol/L (136-145) Potassium Level 3.9 mmol/L (3.5-5.1) Chloride Level 106 mmol/L (98-107) Carbon Dioxide Level 27 mmol/L (21-32) Anion Gap 10 (6-14) Blood Urea Nitrogen 12 mg/dL (8-26) Creatinine 1.0 mg/dL (0.7-1.3) Estimated GFR (Cockcroft-Gault) 75.7 BUN/Creatinine Ratio 12 (6-20) Glucose Level 121 mg/dL (70-99) Calcium Level 8.8 mg/dL (8.5-10.1) Total Bilirubin 0.7 mg/dL (0.2-1.0) Direct Bilirubin 0.1 mg/dL (0.0-0.2) Aspartate Amino Transf (AST/SGOT) 226 U/L (15-37) Alanine Aminotransferase (ALT/SGPT) 57 U/L (16-63) Alkaline Phosphatase 124 U/L (46-116) Troponin I Quantitative 73.199 ng/mL (0.000-0.055) Total Protein 7.1 g/dL (6.4-8.2) Albumin 3.2 g/dL (3.4-5.0) Albumin/Globulin Ratio 0.8 (1.0-1.7) Triglycerides Level 159 mg/dL (0-150) Cholesterol Level 182 mg/dL (0-200) LDL Cholesterol, Calculated 121 mg/dL (0-100) VLDL Cholesterol, Calculated 32 mg/dL (0-40) Non-HDL Cholesterol Calculated 153 mg/dL (0-129) HDL Cholesterol 29 mg/dL (40-60) Cholesterol/HDL Ratio Laboratory Tests Test 12/20/18 12:10 12/20/18 12:15 12/20/18 12:18 12/20/18 12:20 White Blood Count 13.7 x10^3/uL (4.0-11.0) Red Blood Count 5.09 x10^6/uL (4.30-5.70) Hemoglobin 15.9 g/dL (13.0-17.5) Hematocrit 45.2 % (39.0-53.0) Mean Corpuscular Volume 89 fL (79-100) Mean Corpuscular Hemoglobin 31 pg (25-35) Mean Corpuscular Hemoglobin Concent 35 g/dL (31-37) Red Cell Distribution Width 13.4 % (11.5-14.5) Platelet Count 324 x10^3/uL (140-400) Neutrophils (%) (Auto) 67 % (31-73) Lymphocytes (%) (Auto) 17 % (24-48) Monocytes (%) (Auto) 8 % (0-9) Eosinophils (%) (Auto) 7 % (0-3) Basophils (%) (Auto) 0 % (0-3) Neutrophils # (Auto) 9.2 x10^3/uL (1.8-7.7) Lymphocytes # (Auto) 2.4 x10^3/uL (1.0-4.8) Monocytes # (Auto) 1.1 x10^3/uL (0.0-1.1) Eosinophils # (Auto) 1.0 x10^3/uL (0.0-0.7) Basophils # (Auto) 0.0 x10^3/uL (0.0-0.2) Prothrombin Time 12.5 SEC (11.7-14.0) Prothromb Time International Ratio 1.0 (0.8-1.1) Sodium Level 142 mmol/L (136-145) Potassium Level 3.5 mmol/L (3.5-5.1) Chloride Level 104 mmol/L (98-107) Carbon Dioxide Level 25 mmol/L (21-32) Anion Gap 13 (6-14) 16 mmol/L (6-14) Blood Urea Nitrogen 11 mg/dL (8-26) Creatinine 1.3 mg/dL (0.7-1.3) Estimated GFR (Cockcroft-Gault) 55.9 BUN/Creatinine Ratio 8 (6-20) Glucose Level 201 mg/dL (70-99) 193 mg/dL (70-99) Calcium Level 9.1 mg/dL (8.5-10.1) Magnesium Level 1.6 mg/dL (1.8-2.4) Total Bilirubin 0.4 mg/dL (0.2-1.0) Aspartate Amino Transf (AST/SGOT) 20 U/L (15-37) Alanine Aminotransferase (ALT/SGPT) 26 U/L (16-63) Alkaline Phosphatase 140 U/L (46-116) Creatine Kinase 177 U/L (39-308) Creatine Kinase MB (Mass) 2.6 ng/mL (0.0-3.6) Creatine Kinase MB Relative Index 1.5 % (0-4) Troponin I Quantitative 0.175 ng/mL (0.000-0.055) EP-Cga-Q-Type Natriuretic Peptide 679 pg/mL (0-124) Total Protein 7.2 g/dL (6.4-8.2) Albumin 3.3 g/dL (3.4-5.0) Albumin/Globulin Ratio 0.8 (1.0-1.7) Bedside Troponin I 0.08 ng/ml (<0.08) Hemoglobin A1c 5.7 % (4.8-5.6) Bedside Hemoglobin 15.6 g/dL (14-18) Bedside Hematocrit 46 % (37-52) Bedside Sodium 140 mmol/L (135-145) Bedside Potassium 3.4 mmol/L (3.5-5.0) Bedside Chloride 105 mmol/L (98-110) Bedside Total CO2 24 mmol/L (23-32) Bedside Blood Urea Nitrogen 10 mg/dL (8-26) Bedside Creatinine 1.2 mg/dL (0.5-1.4) Bedside Ionized Calcium (Cassandra) 1.16 mmol/L (1.13-1.32) Test 12/20/18 12:39 12/20/18 13:16 12/20/18 16:05 12/20/18 19:40 Urine Opiates Screen Neg (NEG) Urine Methadone Screen Neg (NEG) Urine Barbiturates Neg (NEG) Urine Phencyclidine Screen Neg (NEG) Urine Amphetamine/Methamphetamine Neg (NEG) Urine Benzodiazepines Screen Neg (NEG) Urine Cocaine Screen Neg (NEG) Urine Cannabinoids Screen Pos (NEG) Urine Ethyl Alcohol Neg (NEG) Activated Clotting Time 146 sec (92-181) Troponin I Quantitative 89.186 ng/mL (0.000-0.055) 172.165 ng/mL (0.000-0.055) Test 12/21/18 04:25 White Blood Count 17.6 x10^3/uL (4.0-11.0) Red Blood Count 4.74 x10^6/uL (4.30-5.70) Hemoglobin 14.5 g/dL (13.0-17.5) Hematocrit 42.4 % (39.0-53.0) Mean Corpuscular Volume 89 fL (79-100) Mean Corpuscular Hemoglobin 31 pg (25-35) Mean Corpuscular Hemoglobin Concent 34 g/dL (31-37) Red Cell Distribution Width 13.5 % (11.5-14.5) Platelet Count 307 x10^3/uL (140-400) Neutrophils (%) (Auto) 83 % (31-73) Lymphocytes (%) (Auto) 7 % (24-48) Monocytes (%) (Auto) 7 % (0-9) Eosinophils (%) (Auto) 2 % (0-3) Basophils (%) (Auto) 1 % (0-3) Neutrophils # (Auto) 14.6 x10^3/uL (1.8-7.7) Lymphocytes # (Auto) 1.3 x10^3/uL (1.0-4.8) Monocytes # (Auto) 1.2 x10^3/uL (0.0-1.1) Eosinophils # (Auto) 0.3 x10^3/uL (0.0-0.7) Basophils # (Auto) 0.1 x10^3/uL (0.0-0.2) Segmented Neutrophils % 76 % (35-66) Band Neutrophils % 4 % (0-9) Lymphocytes % 11 % (24-48) Monocytes % 7 % (0-10) Eosinophils % 1 % (0-5) Basophils % 1 % (0-3) Platelet Estimate Adequate (ADEQUATE) Sodium Level 143 mmol/L (136-145) Potassium Level 3.9 mmol/L (3.5-5.1) Chloride Level 106 mmol/L (98-107) Carbon Dioxide Level 27 mmol/L (21-32) Anion Gap 10 (6-14) Blood Urea Nitrogen 12 mg/dL (8-26) Creatinine 1.0 mg/dL (0.7-1.3) Estimated GFR (Cockcroft-Gault) 75.7 BUN/Creatinine Ratio 12 (6-20) Glucose Level 121 mg/dL (70-99) Calcium Level 8.8 mg/dL (8.5-10.1) Total Bilirubin 0.7 mg/dL (0.2-1.0) Direct Bilirubin 0.1 mg/dL (0.0-0.2) Aspartate Amino Transf (AST/SGOT) 226 U/L (15-37) Alanine Aminotransferase (ALT/SGPT) 57 U/L (16-63) Alkaline Phosphatase 124 U/L (46-116) Troponin I Quantitative 73.199 ng/mL (0.000-0.055) Total Protein 7.1 g/dL (6.4-8.2) Albumin 3.2 g/dL (3.4-5.0) Albumin/Globulin Ratio 0.8 (1.0-1.7) Triglycerides Level 159 mg/dL (0-150) Cholesterol Level 182 mg/dL (0-200) LDL Cholesterol, Calculated 121 mg/dL (0-100) VLDL Cholesterol, Calculated 32 mg/dL (0-40) Non-HDL Cholesterol Calculated 153 mg/dL (0-129) HDL Cholesterol 29 mg/dL (40-60) Cholesterol/HDL Ratio Medications Current Medications Nitroglycerin (Nitrostat) 0.4 mg STK-MED ONCE SL ; Start 12/20/18 at 12:12; Stop 12/20/18 at 12:12; Status DC Heparin Sodium (Porcine) (Heparin Sodium) 10,000 unit STK-MED ONCE .ROUTE ; Start 12/20/18 at 12:12; Stop 12/20/18 at 12:12; Status DC Fentanyl Citrate (Fentanyl 2ml Vial) 100 mcg STK-MED ONCE .ROUTE ; Start 12/20/18 at 12:13; Stop 12/20/18 at 12:13; Status DC Hydromorphone HCl (Dilaudid) 2 mg 1X ONCE IV Last administered on 12/20/18at 12:22; Start 12/20/18 at 12:15; Stop 12/20/18 at 12:20; Status DC Ondansetron HCl (Zofran) 4 mg 1X ONCE IV Last administered on 12/20/18at 12:23; Start 12/20/18 at 12:15; Stop 12/20/18 at 12:20; Status DC Morphine Sulfate (Morphine Sulfate) 10 mg STK-MED ONCE .ROUTE ; Start 12/20/18 at 12:14; Stop 12/20/18 at 12:14; Status DC Morphine Sulfate (Morphine Sulfate) 4 mg 1X ONCE IV Last administered on 12/20/18at 12:20; Start 12/20/18 at 12:30; Stop 12/20/18 at 12:31; Status DC Hydromorphone HCl (Dilaudid) 2 mg STK-MED ONCE .ROUTE ; Start 12/20/18 at 12:20; Stop 12/20/18 at 12:20; Status DC Iodixanol (Visipaque 320) 100 ml STK-MED ONCE .ROUTE ; Start 12/20/18 at 12:24; Stop 12/20/18 at 12:24; Status DC Lidocaine HCl (Lidocaine 1% 20ml Vial) 20 ml STK-MED ONCE .ROUTE ; Start 12/20/18 at 12:24; Stop 12/20/18 at 12:24; Status DC Heparin Sodium/ Sodium Chloride 1,000 ml @ As Directed STK-MED ONCE .ROUTE ; Start 12/20/18 at 12:24; Stop 12/20/18 at 12:24; Status DC Diphenhydramine HCl (Benadryl) 50 mg STK-MED ONCE .ROUTE ; Start 12/20/18 at 12:28; Stop 12/20/18 at 12:28; Status DC Famotidine (Pepcid Vial) 20 mg STK-MED ONCE .ROUTE ; Start 12/20/18 at 12:28; Stop 12/20/18 at 12:28; Status DC Methylprednisolone Sodium Succinate (SOLU-Medrol 125MG VIAL) 125 mg STK-MED ONCE .ROUTE ; Start 12/20/18 at 12:28; Stop 12/20/18 at 12:28; Status DC Aspirin (Caitlyn Aspirin) 325 mg STK-MED ONCE .ROUTE ; Start 12/20/18 at 12:35; Stop 12/20/18 at 12:36; Status DC Heparin Sodium (Porcine) (Heparin Sodium) 4,000 unit 1X ONCE IV Last administered on 12/20/18at 12:43; Start 12/20/18 at 12:45; Stop 12/20/18 at 12:46; Status DC Aspirin (Caitlyn Aspirin) 325 mg 1X ONCE PO Last administered on 12/20/18at 12:43; Start 12/20/18 at 12:45; Stop 12/20/18 at 12:46; Status DC Midazolam HCl (Versed) 2 mg STK-MED ONCE .ROUTE ; Start 12/20/18 at 12:38; Stop 12/20/18 at 12:39; Status DC Fentanyl Citrate (Fentanyl 2ml Vial) 100 mcg STK-MED ONCE .ROUTE ; Start 12/20/18 at 12:39; Stop 12/20/18 at 12:39; Status DC Heparin Sodium (Porcine) (Heparin Sodium) 10,000 unit STK-MED ONCE .ROUTE ; Start 12/20/18 at 12:57; Stop 12/20/18 at 12:58; Status DC Tirofiban/Sodium Chloride 250 ml @ As Directed STK-MED ONCE IV ; Start 12/20/18 at 12:57; Stop 12/20/18 at 12:58; Status DC Nitroglycerin (Nitroglycerin) 200 mcg STK-MED ONCE .ROUTE ; Start 12/20/18 at 13:09; Stop 12/20/18 at 13:09; Status DC Potassium Chloride/Water 50 ml @ 50 mls/hr Q1H IV ; Start 12/20/18 at 13:15; Stop 12/20/18 at 15:14; Status UNV Nitroglycerin (Nitroglycerin) 200 mcg 1X ONCE IART Last administered on 12/20/18at 13:26; Start 12/20/18 at 13:00; Stop 12/20/18 at 13:15; Status DC Heparin Sodium/ Sodium Chloride (HEPARIN for ARTERIAL LINE FLUSH) 1,000 unit 1X ONCE IART Last administered on 12/20/18at 13:26; Start 12/20/18 at 13:00; Stop 12/20/18 at 13:15; Status DC Heparin Sodium/ Sodium Chloride (HEPARIN for ARTERIAL LINE FLUSH) 1,000 unit 1X ONCE IART Last administered on 12/20/18 13:26; Start 12/20/18 at 13:00; Stop 12/20/18 at 13:15; Status DC Midazolam HCl (Versed) 2 mg 1X ONCE IV Last administered on 12/20/18 13:26; Start 12/20/18 at 13:00; Stop 12/20/18 at 13:15; Status DC Fentanyl Citrate (Fentanyl 2ml Vial) 100 mcg 1X ONCE IV Last administered on 12/20/18 13:26; Start 12/20/18 at 13:00; Stop 12/20/18 at 13:15; Status DC Iohexol (Omnipaque 300 Mg/ml) 100 ml 1X ONCE IART Last administered on 12/20/18 13:26; Start 12/20/18 at 13:00; Stop 12/20/18 at 13:15; Status DC Heparin Sodium (Porcine) (Heparin Sodium) 2,000 unit 1X ONCE IV Last administered on 12/20/18 13:26; Start 12/20/18 at 13:00; Stop 12/20/18 at 13:15; Status DC Lidocaine HCl (Lidocaine 1% 20ml Vial) 20 ml 1X ONCE INJ Last administered on 12/20/18 13:26; Start 12/20/18 at 13:00; Stop 12/20/18 at 13:15; Status DC Tirofiban/Sodium Chloride 100 ml @ 0 mls/hr CONT PRN IV PER PROTOCOL Last administered on 12/20/18 13:26; Start 12/20/18 at 13:00; Stop 12/21/18 at 06:5 9; Status DC Sodium Chloride (Normal Saline Flush) 3 ml QSHIFT PRN IV AFTER MEDS AND BLOOD DRAWS; Start 12/20/18 at 13:15 Ondansetron HCl (Zofran) 4 mg PRN Q4HRS PRN IV NAUSEA/VOMITING Last administered on 12/21/18at 01:05; Start 12/20/18 at 13:15 Acetaminophen (Tylenol) 650 mg PRN Q4HRS PRN PO TEMP OVER 100.4F OR MILD PAIN; Start 12/20/18 at 13:15; Stop 12/20/18 at 14:32; Status DC Sodium Monofluorophosphate (Fleet Adult) 133 ml PRN DAILY PRN GA CONSTIPATION; Start 12/20/18 at 13:15 Docusate Sodium (Colace) 100 mg PRN BID PRN PO CONSTIPATION; Start 12/20/18 at 13:15 Albuterol/ Ipratropium (Duoneb) 3 ml Q4H NEB ; Start 12/20/18 at 13:15; Stop 12/21/18 at 03:36; Status DC Guaifenesin (Robitussin) 200 mg PRN Q4HRS PRN PO COUGH; Start 12/20/18 at 13:15 Lorazepam (Ativan) 0.5 mg PRN Q4HRS PRN PO ANXIETY / AGITATION Last administered on 12/21/18 06:43; Start 12/20/18 at 13:15 Potassium Chloride/Water 100 ml @ 100 mls/hr Q1H IV Last administered on 12/20/18 14:34; Start 12/20/18 at 14:00; Stop 12/20/18 at 15:24; Status DC Pantoprazole Sodium (Protonix) 40 mg DAILYAC PO Last administered on 12/21/18at 09:17; Start 12/20/18 at 16:30 Ticagrelor (Brilinta) 90 mg STK-MED ONCE .ROUTE ; Start 12/20/18 at 13:30; Stop 12/20/18 at 13:30; Status DC Ticagrelor (Brilinta) 180 mg 1X ONCE PO Last administered on 12/20/18at 13:49; Start 12/20/18 at 13:45; Stop 12/20/18 at 13:47; Status DC Sodium Chloride (Normal Saline Flush) 3 ml QSHIFT PRN IV AFTER MEDS AND BLOOD DRAWS; Start 12/20/18 at 14:15 Aspirin (Ecotrin) 81 mg DAILYWBKFT PO Last administered on 12/21/18at 09:17; Start 12/21/18 at 08:00 Ticagrelor (Brilinta) 90 mg BID PO Last administered on 12/21/18 09:17; Start 12/21/18 at 09:00 Atorvastatin Calcium (Lipitor) 40 mg QHS PO Last administered on 12/20/18at 22:03; Start 12/20/18 at 21:00 Acetaminophen (Tylenol) 650 mg PRN Q6HRS PRN PO MILD PAIN / TEMP Last administered on 8/12/19at 09:17; Start 12/20/18 at 14:15 Fentanyl Citrate (Fentanyl 2ml Vial) 50 mcg PRN Q1HR PRN IV MODERATE OR SEVERE PAIN Last administered on 12/21/18at 01:15; Start 12/20/18 at 14:15 Nitroglycerin (Nitrostat) 0.4 mg PRN Q5MIN PRN SL CHEST PAIN; Start 12/20/18 at 14:15 Amiodarone HCl 150 mg/Dextrose 103 ml @ 600 mls/hr 1X PRN PRN IV FOR VENTRICULAR TACHYCARDIA; Start 12/20/18 at 14:15 Lidocaine HCl (Lidocaine HCl 2% Abboject) 100 mg 1X PRN PRN IV FOR VENTRICULAR TACHYCARDIA; Start 12/20/18 at 14:15 Atropine Sulfate (ATROPINE 0.5mg SYRINGE) 0.5 mg PRN 1X PRN IV BRADYCARDIA; Start 12/20/18 at 14:15 Nitroglycerin/ Dextrose 250 ml @ 0 mls/hr 1X ONCE IV Last administered on 12/20/18at 14:54; Start 12/20/18 at 14:45; Stop 12/20/18 at 14:52; Status DC Potassium Chloride (Klor-Con) 40 meq 1X ONCE PO Last administered on 12/20/18at 16:11; Start 12/20/18 at 15:30; Stop 12/20/18 at 15:31; Status DC Labetalol HCl (Normodyne Iv Push) 20 mg PRN Q2HR PRN IVP HYPERTENSION Last administered on 12/21/18at 01:05; Start 12/20/18 at 21:30 Al Hydroxide/Mg Hydroxide (Mylanta Plus Xs) 30 ml PRN Q2HR PRN PO HEARTBURN / GAS; Start 12/20/18 at 21:30 Prochlorperazine Edisylate (Compazine) 10 mg PRN Q6HRS PRN IV NAUSEA/VOMITING; Start 12/21/18 at 02:45 Losartan Potassium (Cozaar) 50 mg DAILY PO ; Start 12/21/18 at 11:30 Carvedilol (Coreg) 6.25 mg BIDWMEALS PO ; Start 12/21/18 at 11:30 Vitals/I & O Vital Sign - Last 24 Hours 12/20/18 12/20/18 12/20/18 12/20/18 12:06 12:15 12:25 12:35 Temp 97.9 97.9 Pulse 74 64 60 64 Resp 20 B/P (MAP) 120/73 (89) 160/88 (112) 130/85 (100) 138/81 (100) Pulse Ox 93 97 98 94 O2 Delivery Room Air Nasal Cannula Nasal Cannula Nasal Cannula O2 Flow Rate 2.0 2.0 2.0 12/20/18 12/20/18 12/20/18 12/20/18 13:26 13:26 14:00 14:15 Temp 98.6 98.6 Pulse 63 76 76 Resp 16 18 20 24 B/P (MAP) 155/90 (111) 142/101 (115) Pulse Ox 92 96 95 O2 Delivery Nasal Cannula Nasal Cannula Nasal Cannula O2 Flow Rate 2.0 2.0 2.0 12/20/18 12/20/18 12/20/18 12/20/18 14:30 14:45 15:00 15:30 Pulse 66 72 74 70 Resp 22 22 24 23 B/P (MAP) 149/90 (109) 148/90 (109) 160/86 (110) 152/92 (112) Pulse Ox 96 96 97 98 O2 Delivery Nasal Cannula Nasal Cannula Nasal Cannula Nasal Cannula O2 Flow Rate 2.0 2.0 2.0 2.0 12/20/18 12/20/18 12/20/18 12/20/18 16:00 16:00 17:00 18:00 Pulse 70 72 72 Resp 23 24 15 B/P (MAP) 150/80 (103) 147/87 (107) 144/60 (88) Pulse Ox 97 98 95 O2 Delivery Nasal Cannula Nasal Cannula Nasal Cannula Nasal Cannula O2 Flow Rate 2.0 2.0 2.0 2.0 12/20/18 12/20/18 12/20/18 12/20/18 19:00 19:49 20:00 20:00 Temp 98.0 98.0 Pulse 66 65 Resp 20 12 25 B/P (MAP) 140/94 (109) 163/104 (123) Pulse Ox 99 95 99 O2 Delivery Nasal Cannula Nasal Cannula Nasal Cannula Nasal Cannula O2 Flow Rate 2.0 2.0 2.0 2.0 12/20/18 12/20/18 12/20/18 12/20/18 21:00 22:00 22:03 23:00 Pulse 76 62 79 64 Resp 26 21 16 B/P (MAP) 170/98 (122) 163/95 (117) 166/97 164/92 (116) Pulse Ox 97 97 98 O2 Delivery Nasal Cannula Room Air Room Air O2 Flow Rate 2.0 12/20/18 12/21/18 12/21/18 12/21/18 23:59 00:01 01:00 01:05 Temp 98.3 98.3 Pulse 64 66 76 Resp 16 16 B/P (MAP) 169/93 (118) 157/92 (113) 181/104 Pulse Ox 98 97 O2 Delivery Room Air Room Air Room Air 12/21/18 12/21/18 12/21/18 12/21/18 01:15 01:17 02:00 03:00 Pulse 61 61 Resp 12 12 16 28 B/P (MAP) 155/101 (119) 159/83 (108) Pulse Ox 98 98 96 96 O2 Delivery Room Air Room Air Room Air Room Air 12/21/18 12/21/18 12/21/18 12/21/18 03:33 04:00 04:00 05:00 Temp 98.4 98.4 Pulse 68 70 Resp 12 18 21 B/P (MAP) 163/86 (111) 152/100 (117) Pulse Ox 96 97 95 O2 Delivery Room Air Room Air Room Air Room Air 12/21/18 12/21/18 12/21/18 12/21/18 06:00 07:00 08:00 08:59 Temp 98.3 98.3 Pulse 62 68 70 Resp 29 18 16 B/P (MAP) 159/88 (111) 156/92 (113) 163/75 (104) Pulse Ox 95 97 97 O2 Delivery Room Air Room Air Room Air Room Air 12/21/18 12/21/18 09:00 10:00 Pulse 74 72 Resp 20 15 B/P (MAP) 171/72 (105) 154/77 (102) Pulse Ox 97 97 O2 Delivery Room Air Room Air Intake and Output 12/20/18 12/20/18 12/21/18 15:00 23:00 07:00 Intake Total 200 ml 200 ml 266.04 ml Output Total 255 ml 240 ml 420 ml Balance -55 ml -40 ml -153.96 ml PAULA FRANKLIN MD Dec 21, 2018 11:53
[2018-12-21] MEDS: CARVEDILOL 6.25 MG TABLET. PO SCH ×2 (12:44→16:57)
[2018-12-21] MEDS: LOSARTAN POTASSIUM 50 MG TABLET. PO SCH (12:44)
--- NOTE | 2018-12-21 15:12 | NUR ---
SS following for discharge planning. SS reviewed pt chart. Pt is from home with spouse and is currently on room air. No discharge needs noted at this time. SS will continue to follow for discharge planning.
--- NOTE | 2018-12-21 16:31 | NUR ---
Transfer report to ROSALIO Velazquez. Cardiac condition stable post proceeder stent to LAD w troponins on the downside. Dressing off earlier per patient. Site w/o bruit,ecchymosis. OB independently,stable on feet. Sig other assists with increased patient comfort level, he tends to get a little distraught but once again calms after talk w sig other. Discussion w Dr Leblanc on "Healing" process w emphasis on NO SMOKING, Continue POC
[2018-12-21] MEDS: ATORVASTATIN CALCIUM 40 MG TABLET. PO SCH (19:39)
[2018-12-22] MEDS: LABETALOL 20 MG/4 ML DISP.SYRIN. IVP PRN ×2 (00:15→12:45)
[2018-12-22 03:45] VITALS: BP 164/92
[2018-12-22 07:00] VITALS: BP 155/97
[2018-12-22] MEDS: PANTOPRAZOLE 40 MG TABLET.DR. PO SCH (07:30)
[2018-12-22] MEDS: ASPIRIN ENTERIC COATED 81 MG TABLET.DR. PO SCH (08:30)
[2018-12-22] MEDS: CARVEDILOL 6.25 MG TABLET. PO SCH (08:31)
[2018-12-22] MEDS: LOSARTAN POTASSIUM 50 MG TABLET. PO SCH (08:31)
[2018-12-22] MEDS: TICAGRELOR 90 MG TABLET. PO SCH (08:31)
[2018-12-22 11:00] VITALS: BP 189/84
[2018-12-22 11:29] LABS: BILIRUBIN,URINE NEGATIVE (NEG); COLOR,URINE YELLOW; NITRITE,URINE NEGATIVE (NEG); PROTEIN,URINE NEGATIVE (NEG-TRACE)
[2018-12-22 11:47] LABS: BACTERIA,URINE 0 /HPF (0-FEW); CLARITY,URINE CLEAR; RBC,URINE OCC /HPF (0-2); WBC,URINE OCC /HPF (0-4)
[2018-12-22 11:48] LABS: SQUAMOUS EPITHELIAL CELL,UR OCC /LPF
--- NOTE | 2018-12-22 11:49 | PDOC3 ---
Discharge Summary Visit Information Date of Admission: Dec 20, 2018 Date of Discharge: Dec 22, 2018 Admitting Diagnosis Comment: STEMI, michael lateral SMOKER HTN 3 vessel CAD LEukocytosis Final Diagnosis Problems Medical Problems: (1) HTN (hypertension) Status: Chronic (2) Hyperglycemia Status: Acute (3) Hypomagnesemia Status: Acute (4) Marijuana abuse Status: Acute (5) STEMI (ST elevation myocardial infarction) Status: Acute Brief Hospital Course Allergies Allergies Coded Allergies Type Severity Reaction Last Updated Verified Penicillins Allergy Intermediate 12/20/18 Yes latex Allergy Mild 12/20/18 Yes Vital Signs Vital Signs Date Time Temp Pulse Resp B/P (MAP) Pulse Ox O2 Delivery O2 Flow Rate FiO2 12/22/18 11:00 97.8 66 18 189/84 (119) 97 Room Air 97.8 12/22/18 08:00 2.0 Lab Results Laboratory Tests Test 12/20/18 12:10 12/20/18 12:15 12/20/18 12:18 12/20/18 12:20 White Blood Count 13.7 x10^3/uL (4.0-11.0) Red Blood Count 5.09 x10^6/uL (4.30-5.70) Hemoglobin 15.9 g/dL (13.0-17.5) Hematocrit 45.2 % (39.0-53.0) Mean Corpuscular Volume 89 fL (79-100) Mean Corpuscular Hemoglobin 31 pg (25-35) Mean Corpuscular Hemoglobin Concent 35 g/dL (31-37) Red Cell Distribution Width 13.4 % (11.5-14.5) Platelet Count 324 x10^3/uL (140-400) Neutrophils (%) (Auto) 67 % (31-73) Lymphocytes (%) (Auto) 17 % (24-48) Monocytes (%) (Auto) 8 % (0-9) Eosinophils (%) (Auto) 7 % (0-3) Basophils (%) (Auto) 0 % (0-3) Neutrophils # (Auto) 9.2 x10^3/uL (1.8-7.7) Lymphocytes # (Auto) 2.4 x10^3/uL (1.0-4.8) Monocytes # (Auto) 1.1 x10^3/uL (0.0-1.1) Eosinophils # (Auto) 1.0 x10^3/uL (0.0-0.7) Basophils # (Auto) 0.0 x10^3/uL (0.0-0.2) Prothrombin Time 12.5 SEC (11.7-14.0) Prothromb Time International Ratio 1.0 (0.8-1.1) Sodium Level 142 mmol/L (136-145) Potassium Level 3.5 mmol/L (3.5-5.1) Chloride Level 104 mmol/L (98-107) Carbon Dioxide Level 25 mmol/L (21-32) Anion Gap 13 (6-14) 16 mmol/L (6-14) Blood Urea Nitrogen 11 mg/dL (8-26) Creatinine 1.3 mg/dL (0.7-1.3) Estimated GFR (Cockcroft-Gault) 55.9 BUN/Creatinine Ratio 8 (6-20) Glucose Level 201 mg/dL (70-99) 193 mg/dL (70-99) Calcium Level 9.1 mg/dL (8.5-10.1) Magnesium Level 1.6 mg/dL (1.8-2.4) Total Bilirubin 0.4 mg/dL (0.2-1.0) Aspartate Amino Transf (AST/SGOT) 20 U/L (15-37) Alanine Aminotransferase (ALT/SGPT) 26 U/L (16-63) Alkaline Phosphatase 140 U/L (46-116) Creatine Kinase 177 U/L (39-308) Creatine Kinase MB (Mass) 2.6 ng/mL (0.0-3.6) Creatine Kinase MB Relative Index 1.5 % (0-4) Troponin I Quantitative 0.175 ng/mL (0.000-0.055) OS-Snl-K-Type Natriuretic Peptide 679 pg/mL (0-124) Total Protein 7.2 g/dL (6.4-8.2) Albumin 3.3 g/dL (3.4-5.0) Albumin/Globulin Ratio 0.8 (1.0-1.7) Bedside Troponin I 0.08 ng/ml (<0.08) Hemoglobin A1c 5.7 % (4.8-5.6) Bedside Hemoglobin 15.6 g/dL (14-18) Bedside Hematocrit 46 % (37-52) Bedside Sodium 140 mmol/L (135-145) Bedside Potassium 3.4 mmol/L (3.5-5.0) Bedside Chloride 105 mmol/L (98-110) Bedside Total CO2 24 mmol/L (23-32) Bedside Blood Urea Nitrogen 10 mg/dL (8-26) Bedside Creatinine 1.2 mg/dL (0.5-1.4) Bedside Ionized Calcium (Cassandra) 1.16 mmol/L (1.13-1.32) Test 12/20/18 12:39 12/20/18 13:16 12/20/18 16:05 12/20/18 19:40 Urine Opiates Screen Neg (NEG) Urine Methadone Screen Neg (NEG) Urine Barbiturates Neg (NEG) Urine Phencyclidine Screen Neg (NEG) Urine Amphetamine/Methamphetamine Neg (NEG) Urine Benzodiazepines Screen Neg (NEG) Urine Cocaine Screen Neg (NEG) Urine Cannabinoids Screen Pos (NEG) Urine Ethyl Alcohol Neg (NEG) Activated Clotting Time 146 sec (92-181) Troponin I Quantitative 89.186 ng/mL (0.000-0.055) 172.165 ng/mL (0.000-0.055) Test 12/21/18 04:25 White Blood Count 17.6 x10^3/uL (4.0-11.0) Red Blood Count 4.74 x10^6/uL (4.30-5.70) Hemoglobin 14.5 g/dL (13.0-17.5) Hematocrit 42.4 % (39.0-53.0) Mean Corpuscular Volume 89 fL (79-100) Mean Corpuscular Hemoglobin 31 pg (25-35) Mean Corpuscular Hemoglobin Concent 34 g/dL (31-37) Red Cell Distribution Width 13.5 % (11.5-14.5) Platelet Count 307 x10^3/uL (140-400) Neutrophils (%) (Auto) 83 % (31-73) Lymphocytes (%) (Auto) 7 % (24-48) Monocytes (%) (Auto) 7 % (0-9) Eosinophils (%) (Auto) 2 % (0-3) Basophils (%) (Auto) 1 % (0-3) Neutrophils # (Auto) 14.6 x10^3/uL (1.8-7.7) Lymphocytes # (Auto) 1.3 x10^3/uL (1.0-4.8) Monocytes # (Auto) 1.2 x10^3/uL (0.0-1.1) Eosinophils # (Auto) 0.3 x10^3/uL (0.0-0.7) Basophils # (Auto) 0.1 x10^3/uL (0.0-0.2) Segmented Neutrophils % 76 % (35-66) Band Neutrophils % 4 % (0-9) Lymphocytes % 11 % (24-48) Monocytes % 7 % (0-10) Eosinophils % 1 % (0-5) Basophils % 1 % (0-3) Platelet Estimate Adequate (ADEQUATE) Sodium Level 143 mmol/L (136-145) Potassium Level 3.9 mmol/L (3.5-5.1) Chloride Level 106 mmol/L (98-107) Carbon Dioxide Level 27 mmol/L (21-32) Anion Gap 10 (6-14) Blood Urea Nitrogen 12 mg/dL (8-26) Creatinine 1.0 mg/dL (0.7-1.3) Estimated GFR (Cockcroft-Gault) 75.7 BUN/Creatinine Ratio 12 (6-20) Glucose Level 121 mg/dL (70-99) Calcium Level 8.8 mg/dL (8.5-10.1) Total Bilirubin 0.7 mg/dL (0.2-1.0) Direct Bilirubin 0.1 mg/dL (0.0-0.2) Aspartate Amino Transf (AST/SGOT) 226 U/L (15-37) Alanine Aminotransferase (ALT/SGPT) 57 U/L (16-63) Alkaline Phosphatase 124 U/L (46-116) Troponin I Quantitative 73.199 ng/mL (0.000-0.055) Total Protein 7.1 g/dL (6.4-8.2) Albumin 3.2 g/dL (3.4-5.0) Albumin/Globulin Ratio 0.8 (1.0-1.7) Triglycerides Level 159 mg/dL (0-150) Cholesterol Level 182 mg/dL (0-200) LDL Cholesterol, Calculated 121 mg/dL (0-100) VLDL Cholesterol, Calculated 32 mg/dL (0-40) Non-HDL Cholesterol Calculated 153 mg/dL (0-129) HDL Cholesterol 29 mg/dL (40-60) Cholesterol/HDL Ratio Brief Hospital Course Mr. Mello is a 63 old smoker who came in for STEMI, Underwent stat cath, new meds on chart, Advsied against smoking, [facility] pt, NO pt needs, HOme with today Some leukocytosis 15, CXR normal, no steroids,m check UA and rpt CBC before leaving, Include esr consults: cards Proc [facility] Discharge Information Condition at Discharge: Improved, Stable Follow Up: Weeks (cards as instructed) Disposition/Orders: D/C to Home PAULA FRANKLIN MD Dec 22, 2018 11:49
[2018-12-22] MEDS ORDERED: NITR0.4T SL (11:52)
[2018-12-22] MEDS ORDERED: TICA90TA PO (11:52)
[2018-12-22] MEDS ORDERED: ATOR40TA59 PO (11:52)
[2018-12-22] MEDS ORDERED: LOSA-73 PO (11:52)
[2018-12-22] MEDS ORDERED: ASPI-612 PO (11:52)
[2018-12-22] MEDS ORDERED: PANT40TA77 PO (11:52)
[2018-12-22] MEDS ORDERED: CARV6.2511 PO (11:52)
[2018-12-22 11:53] LABS: BASO # 0.2 x10^3/uL (0.0-0.2); BASO % 1 % (0-3); EOS % 6 % (0-3); HEMATOCRIT 44.6 % (39.0-53.0); HEMOGLOBIN 15.2 g/dL (13.0-17.5); LYMPH # 2.7 x10^3/uL (1.0-4.8); LYMPH % 17 % (24-48); MEAN CORPUSCULAR HEMOGLOBIN 31 pg (25-35); MEAN CORPUSCULAR HGB CONC 34 g/dL (31-37); MEAN CORPUSCULAR VOLUME 90 fL (79-100); MONO # 1.7 x10^3/uL (0.0-1.1); MONO % 11 % (0-9); NEUT % 64 % (31-73); PLATELET COUNT 274 x10^3/uL (140-400); RED BLOOD COUNT 4.94 x10^6/uL (4.30-5.70); WHITE BLOOD COUNT 15.5 x10^3/uL (4.0-11.0)
[2018-12-22] MEDS ORDERED: amLODIPine BESYLATE 10 MG TABLET PO SCH (12:30)
[2018-12-22 12:45] VITALS: BP 189/84
[2018-12-22] MEDS ORDERED: LOSA100T14 PO (14:33)
[2018-12-22] MEDS ORDERED: AMLO10TA8 PO (14:34)
--- NOTE | 2018-12-22 15:02 | NUR ---
Discharge Note: RADHA WHITE [address] [place] [address] Discharge instructions and discharge home medications reviewed with Patient and a copy given. All questions have been answered and understanding verbalized. The following instructions and handouts were given: HTN and post-cath Discontinued IV line Patient discharged to home with self care via wheelchair
--- NOTE | 2018-12-22 16:25 | PDOC ---
CARDIOLOGY PROGRESS NOTE SUBJECTIVE: No acute events overnight. No chest pain dyspnea. OBJECTIVE: Vital Signs/I&O: Vital Signs Date Time Temp Pulse Resp B/P (MAP) Pulse Ox O2 Delivery O2 Flow Rate FiO2 12/22/18 12:45 66 189/84 12/22/18 11:00 97.8 18 97 Room Air 97.8 12/22/18 08:00 2.0 I & O 12/21/18 12/21/18 12/22/18 15:00 23:00 07:00 Intake Total 700 ml 400 ml Output Total 300 ml Balance 400 ml 400 ml Objective: GEN.: No apparent distress. Alert and oriented. HEENT: Head is normocephalic, atraumatic NECK: Supple. LUNGS: Clear to auscultation. HEART: RRR, S1, S2 present. Peripheral pulses intact ABDOMEN: Soft, nontender. Positive bowel sounds. EXTREMITIES: Without any cyanosis. NEUROLOGIC: Normal speech, normal tone PSYCHIATRIC: Normal affect, normal mood. SKIN: No ulcerations CURRENT MEDICATIONS: Current Medications Medications (Trade) Dose Ordered Sig/Hawa Route PRN Reason Start Time Stop Time Status Last Admin Dose Admin Amlodipine Besylate (Norvasc) 10 mg DAILY PO 12/22/18 12:30 12/22/18 15:05 DC 12/22/18 12:45 DIAGNOSTIC TESTING: No arrhythmias on tele Labs: +utox screen for marijuana Cr/hgb stable ASSESSMENT: 1. Anterolateral STEMI - resolved. 2. HTN 3. Dyslipidemia 4. Tobacco abuse PLAN: 1. Home on asa 81mg daily, Ticagrelor 90mg bid, amlodipine 10mg daily, losartan 100mg daily SHERLY SHERWOOD MD Dec 22, 2018 16:25
[2018-12-23] MEDS ORDERED: LOSARTAN POTASSIUM 50 MG TABLET. PO SCH (09:00)
== END 2018-12-22 15:04 | disposition home or self-care (01) | DRG 246 ==
LOC: ER 12:06 → 1 WEST ICU 12:21 → 2 SOUTH 12-21 14:45
PROVIDERS: ADMIT Family Medicine; ATTEND Family Medicine
PROC: 027034Z Dilation of Coronary Artery, One Artery with Drug-eluting Intraluminal Device, Percutaneous Approach (ICD-10-PCS; principal; 2018-12-20)
PROC: 4A023N7 Measurement of Cardiac Sampling and Pressure, Left Heart, Percutaneous Approach (ICD-10-PCS; 2018-12-20)
PROC: B2111ZZ Fluoroscopy of Multiple Coronary Arteries using Low Osmolar Contrast (ICD-10-PCS; 2018-12-20)
PROC: B2151ZZ Fluoroscopy of Left Heart using Low Osmolar Contrast (ICD-10-PCS; 2018-12-20)
PROC: 3E073PZ Introduction of Platelet Inhibitor into Coronary Artery, Percutaneous Approach (ICD-10-PCS; 2018-12-20)
DX: I21.09 ST elevation (STEMI) myocardial infarction involving other coronary artery of anterior wall (principal); I50.41 Acute combined systolic (congestive) and diastolic (congestive) heart failure; E83.42 Hypomagnesemia; E11.65 Type 2 diabetes mellitus with hyperglycemia; F12.10 Cannabis abuse, uncomplicated; E78.5 Hyperlipidemia, unspecified; J44.9 Chronic obstructive pulmonary disease, unspecified; F17.210 Nicotine dependence, cigarettes, uncomplicated; E87.6 Hypokalemia; I11.0 Hypertensive heart disease with heart failure; N40.0 Benign prostatic hyperplasia without lower urinary tract symptoms; D72.829 Elevated white blood cell count, unspecified; I25.10 Atherosclerotic heart disease of native coronary artery without angina pectoris; Z88.0 Allergy status to penicillin; Z82.49 Family history of ischemic heart disease and other diseases of the circulatory system; Z91.040 Latex allergy status
CPT/HCPCS: 51702; 92941; 93458; 96374; 96375; 99291; G0269; 36415; 71045; 80047; 80053; 80061; 80307; 81001; 82248; 82553; 83036; 83735; 83880; 84484; 85007; 85025; 85347; 85610; 85651; 87641; 93005; 99152; 99153; C1725; C1760; C1769; C1874; C1887; C1892; J1170; J1644; J2250; J2270; J2405; J3010; J3480; J3490; Q9967; C1713; C1771; G0378; J3246